=== PATIENT | female | born 1990 | race African-American/Black ===

== ENCOUNTER 2018-08-19 13:30 | Emergency (ER) | payer SELFPAY ==
--- OUTSIDE RECORDS SUMMARY | 2018-08-19 13:32 | XMS REPORT ---
:1990 Author Organization [facility] Address [address] [place] [address] Dr. Szymanski [address] [place] [id number] Care Team Providers Name Role Phone Unavailable Unavailable Unavailable Problems This patient has no known problems. Allergies, Adverse Reactions, Alerts This patient has no known allergies or adverse reactions. Medications This patient has no known medications.
[2018-08-19 14:50] LABS: Absolute Lymphocytes (CBC) 0.7 K/uL (0.7-4.9); Basophils % 0.5 % (0-1.3); Hematocrit 42.1 % (36.0-45.0); Lymphocytes % 7.8 % (15.3-44.8); MPV 10.5 fL (7.6-11.3); Monocytes % 3.1 % (3.3-12.3); RBC Red Blood Cell Count 5.14 M/uL (3.86-4.86)
[2018-08-19] MEDS ORDERED: NA CHLORIDE 0.9% 1,000 ML ONE (14:51)
[2018-08-19] MEDS ORDERED: ONDANSETRON 4 MG/2 ML VIAL ONE (14:51)
[2018-08-19] MEDS ORDERED: KETOROLAC 30 MG/ML INJ ONE (14:52)
[2018-08-19 15:04] LABS: ALT/SGPT 20 U/L (12-78); AST/SGOT 17 U/L (15-37); Albumin 4.1 g/dL (3.4-5.0); Alkaline Phosphatase 86 U/L (45-117); BUN Blood Urea Nitrogen 7 mg/dL (7-18); Bicarbonate 26 mmol/L (21-32); Bilirubin Direct < 0.1 mg/dL (0-0.2); Bilirubin Total 0.3 mg/dL (0.2-1.0); Glucose Level 99 mg/dL (74-106); Lipase 187 U/L (73-393); Potassium 3.7 mmol/L (3.5-5.1); Protein, Total 9.3 g/dL (6.4-8.2); Sodium Level 137 mmol/L (136-145)
[2018-08-19 16:45] LABS: Blood Morphology Comment NOT SEEN (NOT SEEN); Platelet Estimate ADEQ; Urine White Blood Cell Casts OK
--- NOTE | 2018-08-19 16:51 | ER ---
Nurse's Notes [facility] Name: Nasrin Borden Age: 28 yrs Sex: Female : 1990 Arrival Date: 08/19/2018 Time: 13:32 Bed 16 Private MD: Diagnosis: Gastroenteritis, Vomiting, Diarrhea Presentation: 08/19 13:52 Presenting complaint: Patient states: N/V/D x 3-4 episodes since this AM. Care prior to aj arrival: None. 13:52 Method Of Arrival: EMS: [facility] 13:52 Acuity: CRYSTAL 3 14:48 Transition of care: patient was not received from another setting of care. Onset of ls4 symptoms was August 19, 2018 at 08:00. Risk Assessment: Do you want to hurt yourself or someone else? Patient reports no desire to harm self or others. Initial Sepsis Screen: Does the patient meet any 2 criteria? No. Patient's initial sepsis screen is negative. Does the patient have a suspected source of infection? No. Patient's initial sepsis screen is negative. Triage Assessment: 13:53 General: Appears in no apparent distress. comfortable, Behavior is calm, cooperative, aj appropriate for age. Pain: Denies pain. Neuro: Level of Consciousness is awake, alert, obeys commands, Oriented to person, place, time, situation, Appropriate for age. Respiratory: Airway is patent Respiratory effort is even, unlabored, Respiratory pattern is regular, symmetrical. GI: Reports diarrhea, nausea, vomiting. Derm: Skin is intact, is healthy with good turgor, Skin is pink, warm \T\ dry. normal. 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 - Social history:: Smoking status: Patient/guardian denies using tobacco. - Ebola Screening: : Patient negative for fever greater than or equal to 101.5 degrees Fahrenheit, and additional compatible Ebola Virus Disease symptoms Patient denies exposure to infectious person Patient denies travel to an Ebola-affected area in the 21 days before illness onset No symptoms or risks identified at this time. Screenin:47 Abuse screen: Denies threats or abuse. Denies injuries from another. Abuse screen:. ls4 Nutritional screening: No deficits noted. Tuberculosis screening: No symptoms or risk factors identified. Fall Risk None identified. Assessment: 14:02 General: see triage assessment . GI: Abdomen is non-distended, obese, Bowel sounds ls4 present X 4 quads. Abd is soft and non tender X 4 quads. Patient currently denies diarrhea. 15:00 Reassessment: Patient appears in no apparent distress at this time. Patient and/or ls4 family updated on plan of care and expected duration. Pain level reassessed. Patient is alert, oriented x 3, equal unlabored respirations, skin warm/dry/pink. 16:00 Reassessment: Patient appears in no apparent distress at this time. ls4 17:00 Reassessment: Patient appears in no apparent distress at this time. Patient and/or ls4 family updated on plan of care and expected duration. Pain level reassessed. Patient is alert, oriented x 3, equal unlabored respirations, skin warm/dry/pink. Vital Signs: 13:53 BP 145 / 81; Pulse 68; Resp 19; Temp 97.5; Pulse Ox 98% on R/A; Weight 100.7 kg; Height aj 5 ft. 0 in. (152.40 cm); 15:00 BP 128 / 74; Pulse 64; Resp 16; Pulse Ox 99% ; Pain 5/10; ls4 16:00 BP 127 / 78; Pulse 65; Resp 16; Pulse Ox 99% on R/A; Pain 3/10; ls4 17:00 BP 127 / 74; Pulse 65; Resp 16; Temp 97.8(O); Pulse Ox 99% ; Pain 3/10; ls4 13:53 Body Mass Index 43.36 (100.70 kg, 152.40 cm) aj ED Course: 13:32 Patient arrived in ED. as 13:48 Lissa Colin, RN is Primary Nurse. ls4 13:52 Triage completed. aj 13:53 José Mccormack MD is Attending Physician. kdr 13:53 Arm band placed on left wrist. Patient placed in waiting room, Patient notified of wait aj time. 14:29 Initial lab(s) drawn, by me, sent to lab. Inserted saline lock: 20 gauge in left ls4 antecubital area, using aseptic technique. Blood collected. 14:47 Patient has correct armband on for positive identification. Bed in low position. Call ls4 light in reach. Side rails up X 1. Pulse ox on. NIBP on. Warm blanket given. Verbal reassurance given. 14:47 No provider procedures requiring assistance completed. ls4 17:40 IV discontinued, intact, bleeding controlled, No redness/swelling at site. Pressure ls4 dressing applied. Administered Medications: 14:47 Drug: Zofran 4 mg Route: IVP; Site: left antecubital; ls4 14:50 Follow up: Response: No adverse reaction; Marked relief of symptoms ls4 14:50 Drug: NS 0.9% 1000 ml Route: IV; Rate: 1 bolus; Site: left antecubital; ls4 16:00 Follow up: IV Status: Completed infusion; IV Intake: 1000ml ls4 15:05 Drug: TORadol - Ketorolac 15 mg Route: IVP; Site: left antecubital; ls4 15:35 Follow up: Response: No adverse reaction; Marked relief of symptoms ls4 Intake: 16:00 IV: 1000ml; Total: 1000ml. ls4 Outcome: 16:50 Discharge ordered by . kdr 17:40 Discharged to home ambulatory. ls4 17:40 Condition: good 17:40 Discharge instructions given to patient, Instructed on discharge instructions, follow up and referral plans. medication usage, safety practices, Demonstrated understanding of instructions, follow-up care, medications, Prescriptions given X 4. 17:58 Patient left the ED. ls4 Signatures: Camille Puga RN José Lee MD MD kdr Martinez, Amelia as Stewart, Lisa, RN RN ls4
--- NOTE | 2018-08-19 16:51 | EDPHYS ---
Physician Documentation [facility] Name: Nasrin Borden Age: 28 yrs Sex: Female : 1990 Arrival Date: 08/19/2018 Time: 13:32 Bed 16 Private MD: ED Physician José Mccormack HPI: 08/19 14:22 This 28 yrs old Black Female presents to ER via EMS with complaints of kdr Vomiting/Diarrhea. 14:22 The patient presents to the emergency department with nausea, that is mild, vomiting, kdr that is intermittent, diarrhea, that is intermittent, abdominal pain, of the suprapubic area, right lower quadrant and left lower quadrant. Onset: The symptoms/episode began/occurred acutely, just prior to arrival, this morning. Possible causes: unknown, Had dairy last night. The symptoms are aggravated by nothing. The symptoms are alleviated by nothing. Associated signs and symptoms: Pertinent positives:. Severity of symptoms: At their worst the symptoms were mild in the emergency department the symptoms. 16:57 The patient has not experienced similar symptoms in the past. The patient has not kdr recently seen a physician. 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 - Social history:: Smoking status: Patient/guardian denies using tobacco. - Ebola Screening: : Patient negative for fever greater than or equal to 101.5 degrees Fahrenheit, and additional compatible Ebola Virus Disease symptoms Patient denies exposure to infectious person Patient denies travel to an Ebola-affected area in the 21 days before illness onset No symptoms or risks identified at this time. ROS: 16:57 Constitutional: Negative for fever, chills, and weight loss, Eyes: Negative for injury, kdr pain, redness, and discharge, Neck: Negative for injury, pain, and swelling, Cardiovascular: Negative for chest pain, palpitations, and edema, Respiratory: Negative for shortness of breath, cough, wheezing, and pleuritic chest pain, Back: Negative for injury and pain, : Negative for injury, bleeding, discharge, and swelling, MS/Extremity: Negative for injury and deformity, Skin: Negative for injury, rash, and discoloration, Neuro: Negative for headache, weakness, numbness, tingling, and seizure activity. Psych: Negative for depression, anxiety, suicide ideation, homicidal ideation, and hallucinations, Allergy/Immunology: Negative for hives, rash, and allergies, Endocrine: Negative for neck swelling, polydipsia, polyuria, polyphagia, and marked weight changes, Hematologic/Lymphatic: Negative for swollen nodes, abnormal bleeding, and unusual bruising. 16:57 Abdomen/GI: Positive for abdominal pain, nausea, vomiting, and diarrhea, Negative for abdominal cramps, abdominal distension, anorexia, dysphagia, hematemesis, black/tarry stool, rectal pain, rectal bleeding. Exam: 16:57 Constitutional: This is a well developed, well nourished patient who is awake, alert, kdr and in no acute distress. Head/Face: Normocephalic, atraumatic. Eyes: Pupils equal round and reactive to light, extra-ocular motions intact. Lids and lashes normal. Conjunctiva and sclera are non-icteric and not injected. Cornea within normal limits. Periorbital areas with no swelling, redness, or edema. Neck: Trachea midline, no thyromegaly or masses palpated, and no cervical lymphadenopathy. Supple, full range of motion without nuchal rigidity, or vertebral point tenderness. No Meningismus. Chest/axilla: Normal chest wall appearance and motion. Nontender with no deformity. No lesions are appreciated. Cardiovascular: Regular rate and rhythm with a normal S1 and S2. No gallops, murmurs, or rubs. Normal PMI, no JVD. No pulse deficits. Respiratory: Lungs have equal breath sounds bilaterally, clear to auscultation and percussion. No rales, rhonchi or wheezes noted. No increased work of breathing, no retractions or nasal flaring. Abdomen/GI: Soft, mild tender, with normal bowel sounds. No distension or tympany. No guarding or rebound. No evidence of tenderness throughout. Back: No spinal tenderness. No costovertebral tenderness. Full range of motion. Skin: Warm, dry with normal turgor. Normal color with no rashes, no lesions, and no evidence of cellulitis. MS/ Extremity: Pulses equal, no cyanosis. Neurovascular intact. Full, normal range of motion. Neuro: Awake and alert, GCS 15, oriented to person, place, time, and situation. Cranial nerves II-XII grossly intact. Motor strength 5/5 in all extremities. Sensory grossly intact. Cerebellar exam normal. Normal gait. Psych: Awake, alert, with orientation to person, place and time. Behavior, mood, and affect are within normal limits. Vital Signs: 13:53 BP 145 / 81; Pulse 68; Resp 19; Temp 97.5; Pulse Ox 98% on R/A; Weight 100.7 kg; Height aj 5 ft. 0 in. (152.40 cm); 15:00 BP 128 / 74; Pulse 64; Resp 16; Pulse Ox 99% ; Pain 5/10; ls4 16:00 BP 127 / 78; Pulse 65; Resp 16; Pulse Ox 99% on R/A; Pain 3/10; ls4 17:00 BP 127 / 74; Pulse 65; Resp 16; Temp 97.8(O); Pulse Ox 99% ; Pain 3/10; ls4 13:53 Body Mass Index 43.36 (100.70 kg, 152.40 cm) aj MDM: 16:50 Patient medically screened. kdr 16:57 Data reviewed: vital signs, nurses notes, lab test result(s). Counseling: I had a kdr detailed discussion with the patient and/or guardian regarding: the historical points, exam findings, and any diagnostic results supporting the discharge/admit diagnosis, lab results, the need for outpatient follow up. 08/19 14:10 Order name: Basic Metabolic Panel; Complete Time: 15:52 [facility] 08/19 14:10 Order name: CBC with Diff [facility] 08/19 14:10 Order name: Creatinine for Radiology; Complete Time: 15:52 kdr 08/19 14:10 Order name: Hepatic Function; Complete Time: 15:52 kdr 08/19 14:10 Order name: Lipase; Complete Time: 15:52 kdr 08/19 15:19 Order name: CBC Smear Scan EDMS 08/19 14:10 Order name: IV Saline Lock; Complete Time: 14:30 kdr 08/19 14:10 Order name: Labs collected and sent; Complete Time: 14:30 kdr Administered Medications: 14:47 Drug: Zofran 4 mg Route: IVP; Site: left antecubital; ls4 14:50 Follow up: Response: No adverse reaction; Marked relief of symptoms ls4 14:50 Drug: NS 0.9% 1000 ml Route: IV; Rate: 1 bolus; Site: left antecubital; ls4 16:00 Follow up: IV Status: Completed infusion; IV Intake: 1000ml ls4 15:05 Drug: TORadol - Ketorolac 15 mg Route: IVP; Site: left antecubital; ls4 15:35 Follow up: Response: No adverse reaction; Marked relief of symptoms ls4 Disposition: 08/19/18 16:50 Discharged to Home. Impression: Gastroenteritis, Vomiting, Diarrhea. - Condition is Stable. - Discharge Instructions: Viral Gastroenteritis, Adult, [id number], Nausea and Vomiting, Adult, [id number]-[id number], Diarrhea, Adult, [id number]. - Prescriptions for Lomotil 2.5- 0.025 mg Oral Tablet - take 2 tablet by ORAL route once daily As needed; 20 tablet. Pepcid 20 mg Oral Tablet - take 1 tablet by ORAL route once daily As needed; 10 tablet. promethazine 25 mg Oral Tablet - take 1 tablet by ORAL route every 6 hours As needed; 20 tablet. Tramadol 50 mg Oral Tablet - take 1 tablet by ORAL route every 8 hours as needed; 12 tablet. - Medication Reconciliation Form, Thank You Letter form. - Follow up: Private Physician; When: 2 - 3 days; Reason: If symptoms return, Further diagnostic work-up, Recheck today's complaints, Continuance of care, Re-evaluation by your physician. - Problem is new. - Symptoms have improved. Signatures: Dispatcher [employer] EDOK Camille Puga RN RN José Lawson MD MD kdr Stewart, Lisa, RN RN ls4 Corrections: (The following items were deleted from the chart) 17:58 16:50 08/19/2018 16:50 Discharged to Home. Impression: Gastroenteritis, Vomiting, ls4 Diarrhea. Condition is Stable. Forms are Medication Reconciliation Form, Thank You Letter, Antibiotic Education, Prescription Opioid Use. Follow up: Private Physician; When: 2 - 3 days; Reason: If symptoms return, Further diagnostic work-up, Recheck today's complaints, Continuance of care, Re-evaluation by your physician. Problem is new. Symptoms have improved. kdr
[2018-08-19 19:59] VITALS: O2SAT 99
[2018-08-19 20:02] VITALS: BP 127/74; TEMP 97.8
== END 2018-08-19 17:58 | disposition home or self-care (01) ==
LOC: ER 13:30
DX: K52.9 Noninfective gastroenteritis and colitis, unspecified (principal); Z88.1 Allergy status to other antibiotic agents
CPT/HCPCS: 36415; 80048; 80076; 83690; 85025; 96361; 96374; 96375; 99284; J2405; J7030

== ENCOUNTER 2020-01-01 16:32 | Emergency (ER) | payer OTHER, SELFPAY ==
--- OUTSIDE RECORDS SUMMARY | 2020-01-01 16:34 | XMS REPORT | Continuity of Care Document ---
:1990 Author Organization [facility] Address [address] [place] [address] Care Team Providers Name Role Phone Suzanne Fernandez Attending Clinician Problems This patient has no known problems. Allergies, Adverse Reactions, Alerts This patient has no known allergies or adverse reactions. Medications This patient has no known medications. Procedures This patient has no known procedures. 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 [id number] MATERNAL [id number] & CHILD [address] [place] [address] Results This patient has no known results.
[2020-01-01] MEDS ORDERED: CYCLOBENZAPRINE 10 MG TAB ONE (18:11)
[2020-01-01] MEDS ORDERED: KETOROLAC 30 MG/ML INJ ONE (18:12)
[2020-01-01] MEDS ORDERED: HYDROCODONE/APAP 10/325 TAB ONE (18:12)
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
[2020-01-01 18:56] VITALS: BP 144/88; TEMP 98.8; O2SAT 100
== END 2020-01-01 18:36 | disposition home or self-care (01) ==
LOC: ER 16:32
DX: S29.012A Strain of muscle and tendon of back wall of thorax, initial encounter (principal); S29.011A Strain of muscle and tendon of front wall of thorax, initial encounter; V49.40XA Driver injured in collision with unspecified motor vehicles in traffic accident, initial encounter; Z88.1 Allergy status to other antibiotic agents
CPT/HCPCS: 96372; 99283

== ENCOUNTER 2020-05-09 22:45 | Emergency (ER) | payer SELFPAY ==
--- OUTSIDE RECORDS SUMMARY | 2020-05-09 22:48 | XMS REPORT | Continuity of Care Document ---
:[address] [facility] t Address 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
[2020-05-10] MEDS ORDERED: MORPHINE 4 MG/ML SYR ONE ×2 (00:41→02:35)
[2020-05-10] MEDS ORDERED: ONDANSETRON 4 MG/2 ML VIAL ONE (00:41)
[2020-05-10] MEDS ORDERED: NA CHLORIDE 0.9% 1,000 ML ONE (00:42)
[2020-05-10] MEDS ORDERED: FAMOTIDINE 20 MG/2 ML VIAL IV ONE (00:42)
[2020-05-10 01:25] LABS: Absolute Lymphocytes (CBC) 1.2 K/uL (0.7-4.9); Basophils % 0.9 % (0-1.3); Hematocrit 37.3 % (36.0-45.0); Lymphocytes % 14.2 % (15.3-44.8); MPV 9.9 fL (7.6-11.3); RBC Red Blood Cell Count 4.49 M/uL (3.86-4.86)
[2020-05-10 01:34] LABS: ALT/SGPT 19 U/L (12-78); AST/SGOT 18 U/L (15-37); Albumin 3.7 g/dL (3.4-5.0); Alkaline Phosphatase 72 U/L (45-117); BUN Blood Urea Nitrogen 9 mg/dL (7-18); Bicarbonate 26 mmol/L (21-32); Bilirubin Direct < 0.1 mg/dL (0-0.2); Bilirubin Total 0.2 mg/dL (0.2-1.0); Glucose Level 115 mg/dL (74-106); Lipase 154 U/L (73-393); Potassium 3.9 mmol/L (3.5-5.1); Protein, Total 8.5 g/dL (6.4-8.2); Sodium Level 138 mmol/L (136-145)
[2020-05-10] MEDS ORDERED: METOCLOPRAMIDE 10 MG/2mL INJ ONE (02:34)
[2020-05-10 03:12] LABS: Urine Blood NEGATIVE (NEG); Urine Glucose NEGATIVE (NEG); Urine Protein 1+ (NEG); Urine Specific Gravity 1.025 (1.005-1.030); Urine pH 7.5 (5.0-7.0)
--- NOTE | 2020-05-10 03:49 | EDPHYS ---
Physician Documentation [facility] Name: Nasrin Borden Age: 30 yrs Sex: Female : 1990 Arrival Date: 05/09/2020 Time: 22:47 Bed 17 Private MD: ED Physician Devang Bess HPI: 05/10 00:28 This 30 yrs old Black Female presents to ER via Ambulatory with complaints of Abdominal mh7 Cramping, Nausea/Vomiting. 00:28 The patient presents with abdominal pain in the upper abdomen. Onset: The mh7 symptoms/episode began/occurred last night, at 17:00. The symptoms do not radiate. Associated signs and symptoms: Pertinent positives: nausea and vomiting, Pertinent negatives: anorexia, blood in stools, chest pain, constipation, diarrhea, dysuria, fever, headache, hematuria, palpitations, shortness of breath, vaginal discharge, vomiting blood. The symptoms are described as intermittent, vague, waxing/waning. Modifying factors: The symptoms are alleviated by nothing, the symptoms are aggravated by nothing. Severity of pain: At its worst the pain was moderate last night, in the emergency department the pain is unchanged despite home interventions. States that she ate food from a restaurant \T\ 1300 yesterday then started having symptoms \T\ 1700.. 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 - Social history:: Smoking status: Patient denies any tobacco usage or history of. ROS: 05/10 00:28 Constitutional: Negative for fever, chills, and weight loss, Eyes: Negative for injury, mh7 pain, redness, and discharge, ENT: Negative for injury, pain, and discharge, Neck: Negative for injury, pain, and swelling, Cardiovascular: Negative for chest pain, palpitations, and edema, Respiratory: Negative for shortness of breath, cough, wheezing, and pleuritic chest pain, Back: Negative for injury and pain, : Negative for injury, bleeding, discharge, and swelling, MS/Extremity: Negative for injury and deformity, Skin: Negative for injury, rash, and discoloration, Neuro: Negative for headache, weakness, numbness, tingling, and seizure, Psych: Negative for depression, anxiety, suicide ideation, homicidal ideation, and hallucinations, Allergy/Immunology: Negative for hives, rash, and allergies, Endocrine: Negative for neck swelling, polydipsia, polyuria, polyphagia, and marked weight changes, Hematologic/Lymphatic: Negative for swollen nodes, abnormal bleeding, and unusual bruising. Exam: 00:28 Head/Face: Normocephalic, atraumatic. Eyes: Pupils equal round and reactive to light, mh7 extra-ocular motions intact. Lids and lashes normal. Conjunctiva and sclera are non-icteric and not injected. Cornea within normal limits. Periorbital areas with no swelling, redness, or edema. Neck: Trachea midline, no thyromegaly or masses palpated, and no cervical lymphadenopathy. Supple, full range of motion without nuchal rigidity, or vertebral point tenderness. No Meningismus. Chest/axilla: Normal chest wall appearance and motion. Nontender with no deformity. No lesions are appreciated. Cardiovascular: Regular rate and rhythm with a normal S1 and S2. No gallops, murmurs, or rubs. Normal PMI, no JVD. No pulse deficits. Respiratory: Lungs have equal breath sounds bilaterally, clear to auscultation and percussion. No rales, rhonchi or wheezes noted. No increased work of breathing, no retractions or nasal flaring. 00:28 Back: No spinal tenderness. No costovertebral tenderness. Full range of motion. Skin: Warm, dry with normal turgor. Normal color with no rashes, no lesions, and no evidence of cellulitis. MS/ Extremity: Pulses equal, no cyanosis. Neurovascular intact. Full, normal range of motion. Neuro: Awake and alert, GCS 15, oriented to person, place, time, and situation. Cranial nerves II-XII grossly intact. Motor strength 5/5 in all extremities. Sensory grossly intact. Cerebellar exam normal. Normal gait. Psych: Awake, alert, with orientation to person, place and time. Behavior, mood, and affect are within normal limits. 00:28 Constitutional: The patient appears in no acute distress, alert, awake, uncomfortable. 00:28 Abdomen/GI: Inspection: obese Bowel sounds: normal, in all quadrants, Palpation: moderate abdominal tenderness, in the epigastric area, right upper quadrant and left upper quadrant, Rectal exam: the exam is deferred, because of patient request, Indicators: McBurney's point is not tender, Mcfadden's sign is negative, Rovsing's sign is negative, Obturator sign is negative, Psoas sign is negative, Liver: no appreciated palpable abnormalities, Hernia: not appreciated. Vital Signs: 05/09 23:10 BP 161 / 99; Pulse 100; Resp 20 S; Temp 99.3(O); Pulse Ox 98% on R/A; Weight 99.34 kg bb (R); Height 5 ft. 0 in. (152.40 cm) (R); Pain 10/10; 03 00:00 BP 158 / 99; Pulse 92; Resp 18; Pulse Ox 98% on R/A; wh 02:00 BP 167 / 100; Pulse 95; Resp 18; Pulse Ox 98% on R/A; wh 04:00 BP 146 / 90; Pulse 66; Resp 18; Pulse Ox 97% on R/A; wh 05/09 23:10 Body Mass Index 42.77 (99.34 kg, 152.40 cm) bb MDM: 03:46 Differential diagnosis: bowel obstruction, cholecystitis, Cholelithiasis, mh7 diverticulitis, gastritis, gastroesophageal reflux disease, non-specific abd pain, pancreatitis, Pyelonephritis, Ureterolithiasis, urinary tract infection. Data reviewed: vital signs, nurses notes, lab test result(s), CBC, electrolytes, urinalysis, EKG, radiologic studies, CT scan. Data interpreted: Pulse oximetry: on room air is 98 %. Interpretation: normal. Counseling: I had a detailed discussion with the patient and/or guardian regarding: the historical points, exam findings, and any diagnostic results supporting the discharge/admit diagnosis, lab results, radiology results, the need for outpatient follow up, to return to the emergency department if symptoms worsen or persist or if there are any questions or concerns that arise at home. Response to treatment: the patient's symptoms have resolved after treatment, the patient's blood pressure is in an acceptable range, mental status has returned to baseline, the patient no longer shows bradycardia, the patient is not short of breath, the patient is not tachycardic, the patient's pain is gone, the patient's temperature has normalized. 03:48 Patient medically screened. [facility] 05/10 00:05 Order name: Basic Metabolic Panel; Complete Time: 02:13 [facility] 05/10 00:05 Order name: CBC with Diff; Complete Time: 02:13 [facility] 05/10 00:05 Order name: Hepatic Function; Complete Time: 02:13 [facility] 05/10 00:05 Order name: Lipase; Complete Time: 02:13 [facility] 05/10 01:50 Order name: Urine Dipstick--Ancillary (enter results); Complete Time: 03:43 [facility] 05/10 01:50 Order name: Urine --Ancillary (enter results); Complete Time: 03:43 [facility] 05/10 00:05 Order name: IV Saline Lock; Complete Time: 00:31 [facility] 05/10 02:15 Order name: CT Abd/Pelvis - IV Contrast Only [facility] 05/10 00:05 Order name: Labs collected and sent; Complete Time: 00: [facility] 05/10 00:05 Order name: Urine Dipstick-Ancillary (obtain specimen); Complete Time: :46 [facility] 05/10 00:05 Order name: Urine Test (obtain specimen); Complete Time: : [facility] 05/10 02:15 Order name: EKG - Nurse/Tech; Complete Time: 02:28 [facility] Administered Medications: 00:24 Drug: NS 0.9% 1000 ml Route: IV; Rate: 1000 ml; Site: right antecubital; 01:45 Follow up: Response: No adverse reaction; IV Status: Completed infusion 00:26 Drug: morphine 4 mg {Note: RASS 0.} Route: IVP; Site: right antecubital; 01:45 Follow up: Response: No adverse reaction; Pain is decreased; RASS: Alert and Calm (0) 00:28 Drug: Zofran (Ondansetron) 4 mg Route: IVP; Site: right antecubital; 01:45 Follow up: Response: No adverse reaction; Nausea is decreased 00:30 Drug: Pepcid 20 mg Route: IVP; Site: right antecubital; 01:45 Follow up: Response: No adverse reaction 02:26 Drug: morphine 4 mg {Note: RASS 0.} Route: IVP; Site: right antecubital; 04:15 Follow up: Response: No adverse reaction; Nausea is decreased 02:28 Drug: Reglan 10 mg Route: IVP; Site: right antecubital; 04:15 Follow up: Response: No adverse reaction; Pain is decreased; RASS: Alert and Calm (0) Disposition: 05/10/20 03:48 Discharged to Home. Impression: Upper abdominal pain, unspecified, Vomiting. - Condition is Stable. - Discharge Instructions: Nausea and Vomiting, Adult, Rejs-eg-Tfwy, Abdominal Pain, Adult, Mcbj-cj-Veqk, Clear Liquid Diet, Mnkk-nr-Fwhi. - Prescriptions for Zofran ODT 4 mg Oral tablet,disintegrating - place 1 tablet by TRANSLINGUAL route every 8 hours As needed; 6 tablet. Bentyl 20 mg Oral Tablet - take 1 tablet by ORAL route every 6 hours As needed; 20 tablet. Pepcid 20 mg Oral Tablet - take 1 tablet by ORAL route every 12 hours for 5 days; 10 tablet. - Medication Reconciliation Form, Thank You Letter, Antibiotic Education, Prescription Opioid Use form. - Follow up: Private Physician; When: 1 - 2 days; Reason: Worsening of condition, Recheck today's complaints, Continuance of care, Re-evaluation by your physician. - Problem is new. - Symptoms have improved. Signatures: Dispatcher [employer] EDMS Romina Metcalf RN RN Lamont Leija RN RN Devang Bess MD MD mh7 Corrections: (The following items were deleted from the chart) 04:15 03:48 05/10/2020 03:48 Discharged to Home. Impression: Upper abdominal pain, wh unspecified; Vomiting. Condition is Stable. Forms are Medication Reconciliation Form, Thank You Letter, Antibiotic Education, Prescription Opioid Use. Follow up: Private Physician; When: 1 - 2 days; Reason: Worsening of condition, Recheck today's complaints, Continuance of care, Re-evaluation by your physician. Problem is new. Symptoms have improved. mh7
--- NOTE | 2020-05-10 03:49 | ER ---
Nurse's Notes [facility] Name: Nasrin Borden Age: 30 yrs Sex: Female : 1990 Arrival Date: 05/09/2020 Time: 22:47 Bed 17 Private MD: Diagnosis: Upper abdominal pain, unspecified;Vomiting Presentation: 05/09 23:10 Chief complaint: Patient states: a couple of hours after eating at [employer] she bb started having abdominal pain, nausea, and vomiting, denies diarrhea. Coronavirus screen: At this time, the client does not indicate any symptoms associated with coronavirus-19. Ebola Screen: No symptoms or risks identified at this time. Initial Sepsis Screen: Does the patient meet any 2 criteria? No. Patient's initial sepsis screen is negative. Does the patient have a suspected source of infection? No. Patient's initial sepsis screen is negative. Risk Assessment: Do you want to hurt yourself or someone else? Patient reports no desire to harm self or others. Onset of symptoms was May 09, 2020. 23:10 Method Of Arrival: Ambulatory bb 23:10 Acuity: CRYSTAL 3 bb Triage Assessment: 23:13 General: Appears uncomfortable, Behavior is cooperative, anxious. Pain: Complains of bb pain in abdomen Pain currently is 10 out of 10 on a pain scale. Neuro: Level of Consciousness is awake, alert, obeys commands, Oriented to person, place, time, situation. Cardiovascular: No deficits noted. Respiratory: Respiratory effort is even, unlabored, Respiratory pattern is regular. GI: Abdomen is non-distended, Reports lower abdominal pain, upper abdominal pain, nausea, vomiting. Derm: Skin is dry, Skin is normal, Skin temperature is warm. Musculoskeletal: Circulation, motion, and sensation intact. 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 - Social history:: Smoking status: Patient denies any tobacco usage or history of. Screenin/10 00:30 Abuse screen: Denies threats or abuse. Denies injuries from another. Nutritional screening: No deficits noted. Tuberculosis screening: No symptoms or risk factors identified. Fall Risk None identified. Assessment: 00:15 General: Appears in no apparent distress. uncomfortable, Behavior is calm, cooperative, wh appropriate for age. Pain: Complains of pain in left upper quadrant and right upper quadrant and epigastric area Quality of pain is described as crampy, Pain began 4 hours ago. Is intermittent. Neuro: Level of Consciousness is awake, alert, obeys commands, Oriented to person, place, time, situation, Appropriate for age. Cardiovascular: Heart tones S1 S2. Respiratory: Airway is patent Respiratory effort is even, unlabored, Respiratory pattern is regular, symmetrical. Respiratory: Breath sounds are clear bilaterally. GI: Abdomen is flat, non-distended, Bowel sounds present X 4 quads. Abd is soft and non tender X 4 quads. Reports lower abdominal pain, upper abdominal pain, cramping, nausea, Patient currently denies diarrhea, vomiting. : No signs and/or symptoms were reported regarding the genitourinary system. EENT: No signs and/or symptoms were reported regarding the EENT system. Derm: Skin is intact, is healthy with good turgor, Skin is pink, warm \T\ dry. normal. Musculoskeletal: Circulation, motion, and sensation intact. 01:57 Reassessment: Patient appears in no apparent distress at this time. No changes from previously documented assessment. Patient and/or family updated on plan of care and expected duration. Pain level reassessed. Patient is alert, oriented x 3, equal unlabored respirations, skin warm/dry/pink. 04:00 Reassessment: Patient appears in no apparent distress at this time. Patient and/or family updated on plan of care and expected duration. Pain level reassessed. Patient is alert, oriented x 3, equal unlabored respirations, skin warm/dry/pink. Patient states feeling better. Patient states symptoms have improved. Vital Signs: 05/09 23:10 BP 161 / 99; Pulse 100; Resp 20 S; Temp 99.3(O); Pulse Ox 98% on R/A; Weight 99.34 kg bb (R); Height 5 ft. 0 in. (152.40 cm) (R); Pain 12/10; 05/10 00:00 BP 158 / 99; Pulse 92; Resp 18; Pulse Ox 98% on R/A; wh 02:00 BP 167 / 100; Pulse 95; Resp 18; Pulse Ox 98% on R/A; wh 04:00 BP 146 / 90; Pulse 66; Resp 18; Pulse Ox 97% on R/A; wh 05/09 23:10 Body Mass Index 42.77 (99.34 kg, 152.40 cm) ED Course: 05/09 22:47 Patient arrived in ED. cl3 23:12 Triage completed. bb 23:13 Arm band placed on. bb 23:53 Devang Bess MD is Attending Physician. 7 05/10 00:05 Lamont Leija, RN is Primary Nurse. 00:30 Patient has correct armband on for positive identification. Placed in gown. Bed in low wh position. Call light in reach. Side rails up X 1. Pulse ox on. NIBP on. 00:30 Inserted saline lock: 20 gauge in right antecubital area, using aseptic technique. wh Blood collected. 02:56 CT Abd/Pelvis - IV Contrast Only In Process Unspecified. EDMS 04:13 No provider procedures requiring assistance completed. IV discontinued, intact, wh bleeding controlled, No redness/swelling at site. Administered Medications: 00:24 Drug: NS 0.9% 1000 ml Route: IV; Rate: 1000 ml; Site: right antecubital; 01:45 Follow up: Response: No adverse reaction; IV Status: Completed infusion 00:26 Drug: morphine 4 mg {Note: RASS 0.} Route: IVP; Site: right antecubital; 01:45 Follow up: Response: No adverse reaction; Pain is decreased; RASS: Alert and Calm (0) 00:28 Drug: Zofran (Ondansetron) 4 mg Route: IVP; Site: right antecubital; 01:45 Follow up: Response: No adverse reaction; Nausea is decreased 00:30 Drug: Pepcid 20 mg Route: IVP; Site: right antecubital; 01:45 Follow up: Response: No adverse reaction 02:26 Drug: morphine 4 mg {Note: RASS 0.} Route: IVP; Site: right antecubital; 04:15 Follow up: Response: No adverse reaction; Nausea is decreased 02:28 Drug: Reglan 10 mg Route: IVP; Site: right antecubital; 04:15 Follow up: Response: No adverse reaction; Pain is decreased; RASS: Alert and Calm (0) Outcome: 03:48 Discharge ordered by . etelvina 04:14 Discharged to home ambulatory. 04:14 Condition: stable 04:14 Discharge instructions given to patient, Instructed on discharge instructions, follow up and referral plans. POC Demonstrated understanding of instructions, follow-up care, POC Prescriptions given X 3. 04:15 Patient left the ED. Signatures: Dispatcher [employer] EDRomina Lemons RN RN bb Habalo, Winsy, RN RN wh Lewis, Charde cl3 Devang Bess MD MD mh7
--- NOTE | 2020-05-10 10:18 | RAD REPORT ---
EXAM DESCRIPTION: CT Abdomen and Pelvis With Intravenous Contrast CLINICAL HISTORY: The patient is 30 years old and is Female; Abd pain;Nausea / vomiting TECHNIQUE: Axial computed tomography images of the abdomen and pelvis with intravenous contrast. S agittal and coronal reformatted images were created and reviewed. This CT exam was performed using one or more of the following dose reduction techniques: automated exposure control, adjustment of t he mA and/or kV according to patient size, and/or use of iterative reconstruction technique. COMPARISON: No relevant prior studies available. FINDINGS: Lung bases: Unremarkable. No mass. No consolidation. ABDOMEN: Liver: Unremarkable. No mass. Gallbladder and bile ducts: Unremarkable. No calcified stones. No ductal dilation. Pancreas: Unremarkable. No mass. No ductal dilation. Spleen: Unremarkable. No splenomegaly. Adrenals: Unremarkable. No mass. Kidneys and ureters: Unremarkable. No solid mass. No hydronephrosis. Stomach and bowel: Unremarkable. No obstruction. No mucosal thickening. PELVIS: Appendix: No findings to suggest acute appendicitis. Bladder: Unremarkable. No mass. Reproductive: Unremarkable as visualized. ABDOMEN and PELVIS: Intraperitoneal space: Unremarkable. No free air. No significant fluid collection. Bones/joints: No acute fracture. No dislocation. Soft tissues: Unremarkable. Vasculature: Unremarkable. No abdominal aortic aneurysm. Lymph nodes: Unremarkable. No enlarged lymph nodes. IMPRESSION: No acute finding in the abdomen/pelvis. Electronically signed by: Pete Beck MD 05/10/2020 3:09 AM FUNERAL PRE ARRANGEMENT SPECIALIST Due to temporary technical issues with the PACS/Fluency reporting system, reports are being signed by the in house radiologist without review as a courtesy to ensure prompt reporting. The interpreting r adiologist is fully responsible for the content of the report.
[2020-05-10 17:16] VITALS: TEMP 99.3
[2020-05-10 17:19] VITALS: BP 146/90; O2SAT 97
== END 2020-05-10 04:15 | disposition home or self-care (01) ==
LOC: ER 22:45
DX: R11.2 Nausea with vomiting, unspecified (principal); Z88.1 Allergy status to other antibiotic agents
CPT/HCPCS: 36415; 74177; 80048; 80076; 81003; 81025; 83690; 85025; 93005; 96361; 96374; 96375; 99284; J2405; J2765; J7030; Q9967

== ENCOUNTER 2021-08-11 01:52 | Emergency (ER) | payer SELFPAY ==
--- OUTSIDE RECORDS SUMMARY | 2021-08-11 01:55 | XMS REPORT | Continuity of Care Document ---
:1990 Author Organization [facility] t Address [address] [place] [address] Care Team Providers Name Role Phone AGGIE BUNN Primary Care Physician Unavailable Maegan BUNN Attending Clinician Unavailable Oni WHCNP C Attending Clinician Epi YING, R Attending Clinician Payers Payer Name Policy Type Policy Number Effective Date Expiration Date Josue carroll HT-RMP [id number] 2018 00:00:00 Problems Condition Condition Condition Status Onset Resolution Last Treating Co mments Source Name Details Category Date Date Treatment Clinician Date Other Other Disease Active [facility] general general 1-19 [place] advice 00 [place] dical for for Branch contracept contracept moo moo management management Trichomona Trichomona Disease Active U nivers l l 4-01 it[place] of vulvovagin [place] it[place] Medical [facility] BMI BMI Disease Active 2019- Univers 40.0-44.9, 40.0-44.9, 3-21 it y of adult adult 00:00: [place] 00 Medical Branch Elevated Elevated Disease Active Unive rs blood blood 3-21 ity of pressure pressure 00:00: [place] reading reading 00 Medical without without Branch diagnosis diagnosis of of hypertensi hypertensi on on Positive Positive Disease Active Unive rs depression depression 3-21 [place] [facility] [place] Family Disease Active [facility] planning planning 3-21 [place] [facility] Family Family Disease Active Univers history of history of 3-21 it y of diabetes diabetes 00:00: [place] mellitus mellitus 00 Medica l Branch Morbid Morbid Disease Active Univers obesity obesity 10-28 ity of 00:00: [place] [facility] Allergies, Adverse Reactions, Alerts Allergy Allergy Status Severity Reaction(s) Onset Inactive Treating Comm ents Source Name Type Date Date Clinician AZITHROM DRUG Active Hallucinates Un edwige YCIN INGREDI 10-12 ity of 00:00: [place] [facility] Azithrom Propensi Active Hallucinatio Univers ycin ty to ns 10-12 ity of adverse 00:00: [place] reaction 00 [facility] [place] Social History Social Habit Start Date Stop Date Quantity Comments Source Exposure to Not sure [facility] SARS-CoV-2 (event) [facility] Alcohol intake 2021-03-21 2021-03-21 0 /d [facility] 00:00:00 00:00:00 [facility] Tobacco use and 2019-07-05 2019-07-05 Never used [facility] exposure 00:00:00 00:00:00 [facility] Sex Ass[birth year] [facility] 00:00:00 00:00:00 [facility] Smoking Status Start Date Stop Date Source Former smoker 2019-07-05 00:00:00 2019-07-05 00:00:00 [facility] Medications Ordered Filled Start Stop Current Ordering Indication Dosage Frequency Signature Comments Components Source Medication Medication Date Date Medication? Clinician (SIG) Name Name No known No Univers medications 03-21 ity of 09:08: [place] [facility] Immunizations Ordered Filled Immunization Date Status Comments Sour e Immunization Name Name TDAP (ADACEL) 2012-10-28 Completed [facility] VACCINE 00:00:00 [facility] Vital Signs Vital Name Observation Time Observation Value Comments Source Diastolic blood 2021-03-21 15:03:00 90 mm[Hg] Unive rsity of pressure [facility] Systolic blood 2021-03-21 15:03:00 140 mm[Hg] Univer sity of pressure [facility] Heart rate 2021-03-21 14:47:00 62 /min [facility] Body temperature 2021-03-21 14:47:00 35.89 [facility] Respiratory rate 2021-03-21 14:47:00 16 /min [facility] Body height 2021-03-21 14:47:00 152.4 cm [facility] Body weight 2021-03-21 14:47:00 101.407 kg [facility] BMI 2021-03-21 14:47:00 43.66 kg/m2 [facility] Procedures Procedure Date / Time Performed Performing Clinician [facility] POCT TEST 2021-03-21 15:21:00 Aggie Bunn [facility] Encounters Start End Encounter Admission Attending Care Care Encounter Source Date/Time Date/Time Type Type Clinicians Facility Department ID 2021-03-21 2021-03-21 Outpatient R ONI [facility] [id number] [facility] 09:00:00 09:25:56 AGGIE russo o f [facility] 2021-03-21 2021-03-21 [facility] [id number] [facility] 09:00:00 09:25:56 Visit Aggie Issa [employer] [id number] Eran as MATERNAL [id number] Med ical & CHILD [address] [place] [address] 2019-07-05 2019-07-[address] [facility] [id number] 21 10:19:00 10:54:18 Visit Suzanne Reagan [employer] [id number] [facility] [id number] MATERNAL [id number] & CHILD [address] [place] [address] Results Test Description Test Time Test Comments Results Result Comments Source POCT TEST 2021-03-21 15:21:00 Test Item Value Reference Range Interpretation Comme nts POCT PREG (test code = 1605) Negative On board controls acceptable with C Line (test code = 3574) Yes POCT PREG LOT # (test code = 3575) POCT PREG TEST DATE (test code = 3576) [facility]
[2021-08-11] MEDS ORDERED: NA CHLORIDE 0.9% 1,000 ML ONE (03:23)
[2021-08-11] MEDS ORDERED: ONDANSETRON 4 MG/2 ML VIAL ONE (03:23)
[2021-08-11] MEDS ORDERED: MORPHINE 4 MG/ML SYR ONE (03:23)
[2021-08-11 03:47] LABS: Urine Blood Negative (Negative); Urine Glucose Negative (Negative); Urine Protein Negative (Negative)
[2021-08-11 03:51] LABS: Absolute Lymphocytes (CBC) 1.3 K/uL (0.7-4.9); Hematocrit 36.6 % (36.0-45.0); Lymphocytes % 19.6 % (15.3-44.8); RBC Red Blood Cell Count 4.44 M/uL (3.86-4.86)
[2021-08-11 04:13] LABS: Albumin 3.4 g/dL (3.4-5.0); Bilirubin Total 0.2 mg/dL (0.2-1.0); Potassium 3.6 mmol/L (3.5-5.1); Protein, Total 7.9 g/dL (6.4-8.2); Troponin High Sensitivity 58.5 pg/mL (<58.9)
--- NOTE | 2021-08-11 06:54 | EDPHYS ---
Physician Documentation [facility] Name: Nasrin Borden Age: 31 yrs Sex: Female : 1990 Arrival Date: 08/11/2021 Time: 02:12 Bed 18 Private MD: ED Physician Devang Bess HPI: 08/11 02:20 This 31 yrs old Black Female presents to ER via EMS with complaints of Abdominal Pain. mh7 02:20 The patient presents with abdominal pain in the epigastric area. Onset: The mh7 symptoms/episode began/occurred yesterday. The symptoms do not radiate. Associated signs and symptoms: Pertinent positives: nausea, Pertinent negatives: anorexia, blood in stools, chest pain, constipation, diarrhea, dysuria, fever, headache, hematuria, palpitations, shortness of breath, vaginal discharge, vomiting, vomiting blood. The symptoms are described as intermittent, vague, waxing/waning. Modifying factors: The symptoms are alleviated by nothing, the symptoms are aggravated by nothing. Severity of pain: At its worst the pain was moderate yesterday, in the emergency department the pain has improved moderately. 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 Flu vaccine is not up to date. - Social history:: Smoking status: Patient denies any tobacco usage or history of. ROS: 02:20 Constitutional: Negative for fever, chills, and weight loss, Eyes: Negative for injury, mh7 pain, redness, and discharge, ENT: Negative for injury, pain, and discharge, Neck: Negative for injury, pain, and swelling, Cardiovascular: Negative for chest pain, palpitations, and edema, Respiratory: Negative for shortness of breath, cough, wheezing, and pleuritic chest pain, Back: Negative for injury and pain, : Negative for injury, bleeding, discharge, and swelling, MS/Extremity: Negative for injury and deformity, Skin: Negative for injury, rash, and discoloration, Neuro: Negative for headache, weakness, numbness, tingling, and seizure, Psych: Negative for depression, anxiety, suicide ideation, homicidal ideation, and hallucinations, Allergy/Immunology: Negative for hives, rash, and allergies, Endocrine: Negative for neck swelling, polydipsia, polyuria, polyphagia, and marked weight changes, Hematologic/Lymphatic: Negative for swollen nodes, abnormal bleeding, and unusual bruising. Exam: 02:20 Head/Face: Normocephalic, atraumatic. Eyes: Pupils equal round and reactive to light, mh7 extra-ocular motions intact. Lids and lashes normal. Conjunctiva and sclera are non-icteric and not injected. Cornea within normal limits. Periorbital areas with no swelling, redness, or edema. Neck: Trachea midline, no thyromegaly or masses palpated, and no cervical lymphadenopathy. Supple, full range of motion without nuchal rigidity, or vertebral point tenderness. No Meningismus. Chest/axilla: Normal chest wall appearance and motion. Nontender with no deformity. No lesions are appreciated. Cardiovascular: Regular rate and rhythm with a normal S1 and S2. No gallops, murmurs, or rubs. Normal PMI, no JVD. No pulse deficits. Respiratory: Lungs have equal breath sounds bilaterally, clear to auscultation and percussion. No rales, rhonchi or wheezes noted. No increased work of breathing, no retractions or nasal flaring. 02:20 Back: No spinal tenderness. No costovertebral tenderness. Full range of motion. Skin: Warm, dry with normal turgor. Normal color with no rashes, no lesions, and no evidence of cellulitis. MS/ Extremity: Pulses equal, no cyanosis. Neurovascular intact. Full, normal range of motion. Neuro: Awake and alert, GCS 15, oriented to person, place, time, and situation. Cranial nerves II-XII grossly intact. Motor strength 5/5 in all extremities. Sensory grossly intact. Cerebellar exam normal. Normal gait. 02:20 Constitutional: The patient appears in no acute distress, alert, awake, uncomfortable. 02:20 Abdomen/GI: Inspection: obese Bowel sounds: normal, in all quadrants, Palpation: moderate abdominal tenderness, in the epigastric area, mass, is not appreciated, rebound tenderness, is not appreciated, voluntary guarding, is not appreciated, involuntary guarding, is not appreciated, no appreciated organomegaly, Indicators: McBurney's point is not tender, Mcfadden's sign is negative, Rovsing's sign is negative, Obturator sign is negative, Psoas sign is negative, Liver: no appreciated palpable abnormalities, Hernia: not appreciated. Vital Signs: 01:55 BP 177 / 108; Pulse 67; Resp 16; Temp 98.8; Pulse Ox 100% on R/A; Weight 98.88 kg; ag7 Height 5 ft. (152.40 cm); Pain 7/10; 02:30 BP 154 / 92; Pulse 67; Resp 16 S; Pulse Ox 100% ; Pain 7/10; ag7 03:30 BP 151 / 98; Pulse 61; Resp 16 S; Pulse Ox 100% on R/A; Pain 5/10; ag7 04:00 Pain 5/10; ag7 04:30 BP 153 / 102; Pulse 72; Pulse Ox 99% on R/A; Pain 5/10; ag7 01:55 Body Mass Index 42.57 (98.88 kg, 152.40 cm) ag7 MDM: 06:50 Differential diagnosis: bowel obstruction, cholecystitis, Cholelithiasis, mh7 diverticulitis, gastritis, gastroesophageal reflux disease, non-specific abd pain, pancreatitis, Ureterolithiasis, urinary tract infection. Data reviewed: vital signs, nurses notes, lab test result(s), CBC, electrolytes, urinalysis, EKG, radiologic studies, CT scan. Data interpreted: Pulse oximetry: on room air is 99 %. Interpretation: normal. Counseling: I had a detailed discussion with the patient and/or guardian regarding: the historical points, exam findings, and any diagnostic results supporting the discharge/admit diagnosis, lab results, radiology results, the need for outpatient follow up, to return to the emergency department if symptoms worsen or persist or if there are any questions or concerns that arise at home. Response to treatment: the patient's symptoms have resolved after treatment, the patient's blood pressure is in an acceptable range, mental status has returned to baseline, the patient no longer shows bradycardia, the patient is not short of breath, the patient is not tachycardic, the patient's pain is gone, the patient's temperature has normalized, the patient is now symptom free, patient is well hydrated. 06:[address] [facility] 08/11 02:49 Order name: CBC with Diff; Complete Time: 04:18 [facility] 08/11 02:49 Order name: CMP; Complete Time: 04:18 [facility] 08/11 02:49 Order name: Lipase; Complete Time: 04:18 [facility] 08/11 02:49 Order name: CT Abd/Pelvis - IV Contrast Only [facility] 08/11 02:49 Order name: Troponin High Sensitivity; Complete Time: 04:18 [facility] 08/11 03:47 Order name: Urine Dipstick-Ancillary; Complete Time: 04:18 [facility] 08/11 02:49 Order name: IV Saline Lock; Complete Time: 03:38 [facility] 08/11 02:49 Order name: Labs collected and sent; Complete Time: 03:38 [facility] 08/11 02:49 Order name: Urine Dipstick-Ancillary (obtain specimen); Complete Time: 03:46 [facility] 08/11 02:49 Order name: Urine Test (obtain specimen); Complete Time: 03:47 [facility] 08/11 02:49 Order name: EKG; Complete Time: 02:50 [facility] 08/11 02:49 Order name: EKG - Nurse/Tech; Complete Time: 03:37 mh7 Administered Medications: 03:37 Drug: morphine 4 mg Route: IVP; Infused Over: 4 mins; Site: left antecubital; ag7 04:00 Follow up: Pain 5/10 Adult; Response: No adverse reaction; RASS: Alert and Calm (0) ag7 03:38 Drug: NS 0.9% 1000 ml Route: IV; Rate: 1 bolus; Site: left antecubital; ag7 04:54 Follow up: Response: No adverse reaction; IV Status: Completed infusion; IV Intake: ag7 1000ml 03:38 Drug: Zofran (Ondansetron) 4 mg Route: IVP; Site: left antecubital; ag7 04:00 Follow up: Response: No adverse reaction; Marked relief of symptoms ag7 Disposition Summary: 08/11/21 06:53 Discharge Ordered Location: Home [facility] Problem: new [facility] Symptoms: have improved [facility] Condition: Stable [facility] Diagnosis - Abdominal pain, unspecified [facility] - Nausea [facility] Followup: [facility] - With: Private Physician - When: 1 - 2 days - Reason: Worsening of condition, Recheck today's complaints, Continuance of care, Re-evaluation by your physician Discharge Instructions: - Discharge Summary Sheet [facility] - Nausea, Adult [facility] - Abdominal Pain, Adult, [id number] [facility] Forms: - Medication Reconciliation Form [facility] - Thank You Letter 7 - Antibiotic Education 7 - Prescription Opioid Use [facility] - Work release form eb Prescriptions: - ondansetron 4 mg Oral tablet,disintegrating - place 1 tablet by TRANSLINGUAL route every 8 hours As needed; 10 tablet; [facility] Refills: 0, Product Selection Permitted - Pepcid 20 mg Oral Tablet - take 1 tablet by ORAL route every 12 hours for 5 days; 10 tablet; Refills: 0, [facility] Product Selection Permitted - dicyclomine 20 mg Oral Tablet - take 1 tablet by ORAL route 4 times per day As needed; 20 tablet; Refills: 0, [facility] Product Selection Permitted Signatures: Dispatcher [employer] Devang Martinez MD MD [facility] Tatiana Sheets RN RN [facility]
--- NOTE | 2021-08-11 06:54 | ER ---
Nurse's Notes [facility] Name: Nasrin Borden Age: 31 yrs Sex: Female : 1990 Arrival Date: 08/11/2021 Time: 02:12 Bed 18 Private MD: Diagnosis: Abdominal pain, unspecified;Nausea Presentation: 08/11 01:55 Chief complaint: EMS states: Patient c/o epigastric pain that started 08/10/2021 at 1800 ag7 pain /, with nausea. Coronavirus screen: Client denies travel out of the [place] in the last 14 days. At this time, the client does not indicate any symptoms associated with coronavirus-19. Ebola Screen: Patient negative for fever greater than or equal to 101.5 degrees Fahrenheit, and additional compatible Ebola Virus Disease symptoms Patient denies exposure to infectious person. Patient denies travel to an Ebola-affected area in the 21 days before illness onset. Initial Sepsis Screen: Does the patient meet any 2 criteria? No. Patient's initial sepsis screen is negative. Does the patient have a suspected source of infection? No. Patient's initial sepsis screen is negative. Risk Assessment: Do you want to hurt yourself or someone else? Patient reports no desire to harm self or others. Onset of symptoms was August 10, 2021. Care prior to arrival: IV initiated. 20 GA, in the left antecubital area. 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 Flu vaccine is not up to date. - Social history:: Smoking status: Patient denies any tobacco usage or history of. Screenin:25 Abuse screen: Denies threats or abuse. Nutritional screening: No deficits noted. ag7 Tuberculosis screening: No symptoms or risk factors identified. Fall Risk None identified. Assessment: 02:23 General: Appears in no apparent distress. Behavior is calm, cooperative, appropriate ag7 for age. Pain: Complains of pain in epigastric area Pain does not radiate. Pain currently is 7 out of 10 on a pain scale. Quality of pain is described as aching, crampy, Pain began suddenly, Is continuous, Alleviated by nothing. Neuro: Level of Consciousness is awake, alert, obeys commands, Oriented to person, place, time, situation, Appropriate for age Guard Manager are equal bilaterally. Cardiovascular: Heart tones S1 S2 present. Respiratory: Airway is patent Trachea midline Respiratory effort is even, unlabored, Respiratory pattern is regular, symmetrical, Breath sounds are clear bilaterally. GI: Abdomen is obese, Bowel sounds present X 4 quads. Abd is soft and non tender X 4 quads. Reports upper abdominal pain, nausea. : Denies burning with urination. 03:30 Reassessment: Patient and/or family updated on plan of care and expected duration. Pain ag7 level reassessed. Patient is alert, oriented x 3, equal unlabored respirations, skin warm/dry/pink. abdominal pain 5/10 Patient states feeling better. Patient states symptoms have improved. 04:30 Reassessment: No changes from previously documented assessment. ag7 05:21 Reassessment: Patient and/or family updated on plan of care and expected duration. Pain ag7 level reassessed. Patient is alert, oriented x 3, equal unlabored respirations, skin warm/dry/pink. Patient return from CT Patient states feeling better. Patient states symptoms have improved. Vital Signs: 01:55 BP 177 / 108; Pulse 67; Resp 16; Temp 98.8; Pulse Ox 100% on R/A; Weight 98.88 kg; ag7 Height 5 ft. (152.40 cm); Pain 7/10; 02:30 BP 154 / 92; Pulse 67; Resp 16 S; Pulse Ox 100% ; Pain 7/10; ag7 03:30 BP 151 / 98; Pulse 61; Resp 16 S; Pulse Ox 100% on R/A; Pain 5/10; ag7 04:00 Pain 5/10; ag7 04:30 BP 153 / 102; Pulse 72; Pulse Ox 99% on R/A; Pain 5/10; ag7 01:55 Body Mass Index 42.57 (98.88 kg, 152.40 cm) ag7 ED Course: 02:12 Patient arrived in ED. ds4 02:13 Devang Bess MD is Attending Physician. 7 02:19 Tatiana Sheets, RN is Primary Nurse. ag7 02:22 Triage completed. ag7 02:25 Arm band placed on right wrist. ag7 02:25 No provider procedures requiring assistance completed. Maintain EMS IV. Dressing ag7 intact. Site clean \T\ dry. Gauge \T\ site: 20 gauge left AC. 02:26 Patient has correct armband on for positive identification. Bed in low position. Call ag7 light in reach. Side rails up X 1. 03:47 CBC with Diff Sent. ag7 03:47 CMP Sent. ag7 03:47 Lipase Sent. ag7 05:46 CT Abd/Pelvis - IV Contrast Only In Process Unspecified. EDMS 07:04 IV discontinued, intact, Pressure dressing applied. rankin Administered Medications: 03:37 Drug: morphine 4 mg Route: IVP; Infused Over: 4 mins; Site: left antecubital; ag7 04:00 Follow up: Pain 5/10 Adult; Response: No adverse reaction; RASS: Alert and Calm (0) ag7 03:38 Drug: NS 0.9% 1000 ml Route: IV; Rate: 1 bolus; Site: left antecubital; ag7 04:54 Follow up: Response: No adverse reaction; IV Status: Completed infusion; IV Intake: ag7 1000ml 03:38 Drug: Zofran (Ondansetron) 4 mg Route: IVP; Site: left antecubital; ag7 04:00 Follow up: Response: No adverse reaction; Marked relief of symptoms ag7 Medication: 05:22 VIS not applicable for this client. ag7 Intake: 04:54 IV: 1000ml; Total: 1000ml. ag7 Outcome: 06:53 Discharge ordered by . 7 07:04 Discharged to home ambulatory. rankin 07:04 Condition: good 07:04 Discharge instructions given to patient. 07:04 Patient left the ED. rankin Signatures: Dispatcher [employer] EDMS Alex Prado 4 Devang Bess MD MD 7 Au-StagerMarla RN RN rankin Tatiana Sheets RN RN [facility]
--- NOTE | 2021-08-11 07:37 | RAD REPORT ---
EXAM DESCRIPTION: CT - Abdomen Pelvis W Contrast - 08/11/2021 7:27 am CLINICAL HISTORY: Abdominal pain, acute, nonlocalized COMPARISON: CT abdomen and pelvis May 2020. TECHNIQUE: Biphasic, helical CT imaging of the abdomen and pelvis was performed following 100 ml non -ionic IV contrast. No oral contrast administered. All CT scans are performed using dose optimization technique as appropriate and may include automated exposure control or mA/KV adjustment according to patient size. FINDINGS: No suspicious findings in the lung bases. The liver, spleen, and pancreas show no suspicious findings. Gallbladder and biliary tree are also wi thout suspicious finding. Symmetric renal function is seen with no hydronephrosis or suspicious renal mass. No pyelonephritis o r acute parenchymal process. No bladder abnormalities. No adrenal abnormalities. Uterus and ovaries s how no suspicious findings. A 12 mm left ovarian cyst is identified. No dilated bowel loops or bowel wall thickening. Mild prominence of the small bowel seen on the prior study is not present on the current examination. No terminal ileum abnormality seen. No direct or in direct evidence for appendicitis. No free air, pneumatosis or focal inflammatory stranding. Minimal f ree fluid in the cul de sac is within physiologic limits. No hernia, mass or bulky lymphadenopathy. No suspicious bony findings. IMPRESSION: Contrast enhanced CT abdomen and pelvis showing no emergent finding. Minimal free fluid in the cul de sac is within physiologic limits. Small 12 mm right ovarian cyst is present. No cyst rupture or hemorrhage identifiable. No acute bowel finding on this study. No acute finding seen.
[2021-08-11 07:40] VITALS: TEMP 98.8
[2021-08-11 07:46] VITALS: BP 153/102; O2SAT 99
--- NOTE | 2021-08-11 09:11 | EKG ---
Test Date: 2021-08-11 Test Time: 03:22:25 Sales Representative: HEAVEN MEASUREMENT RESULTS: Intervals: Rate: 57 KS: 142 QRSD: 76 QT: 390 QTc: 379 Bailey: P: 47 KS: 142 QRS: 26 T: 22 INTERPRETIVE STATEMENTS: Sinus bradycardia Otherwise normal ECG Compared to ECG 05/10/2020 02:23:24 Sinus rhythm no longer present Electronically Signed On 08-11-21 09:10:34 CDT by Tomas De Santiago
== END 2021-08-11 07:04 | disposition home or self-care (01) ==
LOC: ER 01:52
DX: R10.13 Epigastric pain (principal); R11.0 Nausea; I10 Essential (primary) hypertension; Z88.1 Allergy status to other antibiotic agents
CPT/HCPCS: 36415; 74177; 80053; 81003; 83690; 84484; 85025; 93005; 96361; 96374; 96375; 99284; J2405; J7030; Q9967

== ENCOUNTER 2022-10-20 10:22 | Emergency (ER) | payer SELFPAY ==
--- OUTSIDE RECORDS SUMMARY | 2022-10-20 10:25 | XMS REPORT | Continuity of Care Document ---
:1990 Author Organization [facility] t Address [address] [facility] [address] [place] [address] Care Team Providers Name Role Phone TAMRA BERNARD Primary Care Physician Unavailable EVELIN STEEL Attending Clinician Unavailable Evelin Steel MD Attending Clinician TAMRA BERNARD Attending Clinician Unavailable Marco Antonio Tamra BENSON Attending Clinician [phone] Doctor Unassigned, [place] Attending Clinician Unavailable Jose Miguel Munroe DO Attending Clinician Suzanne Fernandez Attending Clinician SUZANNE CONTRERAS Attending Clinician Unavailable Kristen Galan Attending Clinician EVELIN STEEL Admitting Clinician Unavailable Payers Payer Name Policy Type Policy Number Effective Date Expiration Date Josue AVERY II [id number] 2022 00:00:00 [facility] [id number] 2018 00:00:00 Problems Condition Condition Condition Status Onset Resolution Last Treating Co mments Source Name Details Category Date Date Treatment Clinician Date Other Other Disease Active Univers depression depression 7-17 it y of 00:00: [place] [facility] Other Other Disease Active Univers general general 1-19 [place] of counseling [place] and advice and advice 00 Me dical for for Branch contracept contracept moo moo management management Trichomona Trichomona Disease Active U nivers l l 4-01 ity of vulvovagin vulvovagin [place] it[place] itis 00 Medical [place] BMI BMI Disease Active Univers 40.0-44.9, 40.0-44.9, 3-21 it y of adult adult 00:00: [place] 00 [facility] Branch Elevated Elevated Disease Active Unive rs blood blood 3-21 ity of pressure pressure 00:00: [place] reading reading 00 Medical without without Branch diagnosis diagnosis of of hypertensi hypertensi on on Positive Positive Disease Active Unive rs depression depression 3-21 [place] of screening screening [place] Essential Essential Disease Active Uni vers hypertensi hypertensi 3-21 it y of on, benign on, benign [place] [facility] [place] Family Family Disease Active Univers planning planning 3-21 [place] of counseling counseling [place] Family Family Disease Active Univers history of history of 3-21 it y of diabetes diabetes 00:00: [place] mellitus mellitus 00 Medica l Branch Morbid Morbid Disease Active Univers obesity obesity 8-28 ity of 00:00: [place] [facility] Allergies, Adverse Reactions, Alerts Allergy Allergy Status Severity Reaction(s) Onset Inactive Treating Comm ents Source Name Type Date Date Clinician AZITHROM DRUG Active Hallucinates Un edwige YCIN INGREDI 8-12 ity of 00:00: [place] [facility] Branch Azithrom Propensi Active Hallucinatio Univers ycin ty to ns 8-12 ity of adverse 00:00: [place] reaction [address] [place] [address] s Branch Social History Social Habit Start Date Stop Date Quantity Comments Source History of tobacco Current smoker Un iversity of use [facility] Gender identity Universit y of [facility] Sexual orientation Univer sity of [facility] Exposure to Not sure University of SARS-CoV-2 (event) [facility] Alcohol intake 2022-09-27 2022-09-27 0 /d University of 00:00:00 00:00:00 [facility] History of Social 2022-09-16 2022-09-16 Univers ity of function 00:00:00 00:00:00 [facility] Tobacco use and 2022-09-16 2022-09-16 Smokeless Universit y of exposure 00:00:00 00:00:00 tobacco non-user [facility] Sex Assigned At [birth year] Universit y of 00:00:00 00:00:00 [facility] Smoking Status Start Date Stop Date Source Ex-smoker 2022-09-16 00:00:00 2022-09-16 00:00:00 Universi ty [facility] Medications Ordered Filled Start Stop Current Ordering Indication Dosage Frequency Signature Comments Components Source Medication Medication Date Date Medication? Clinician (SIG) Name Name potassium 2022- No 10meq 10 mEq, IV Univers chloride in 09-27 Piggyback, i ty of water 10 20:00: 21:59 Q1H, 2 [place] mEq/100 mL 00 :00 doses, Medical RTU 10 mEq First dose [facility] on Fri09/27/22 at 1500, Last dose on Fri09/27/22 at 1600, Administer over 60 Minutes, 100 mL KCL 2022- No 40meq 40 mEq, Univers (KLOR-CON 09-27 Oral, ity of M20) tablet 19:15: 19:34 ONCE, 1 [place] 40 mEq 00 :00 dose, On Medical Fri [place] 09/27/22 at 1415, CATARINO ketorolac 2022- No 30mg 30 mg, Unive rs (TORADOL) 09-27 Slow IV ity of injection 18:15: 18:21 Push, ONCE [place] 30 mg 00 :00 NOW, 1 Medical dose, On Branch 09/27/22 at 1315, CATAR[place] NaCl 0.9% 2022- No 1000mL at 999 Uni vers (NS) bolus 09-27 mL/hr, ity of infusion 18:15: 21:59 1,000 mL, Eran as 1,000 mL 00 :00 IV Medical Piggyback, [place] ONCE, 1 dose, On Fri09/27/22 at 1315, STAT dexamethaso 2022-0 2022- No 10mg 10 mg, Uni vers ne sod phos 09-27 Slow IV ity of PF 17:30: 18:23 Push, [place] injection 00 :00 ONCE, 1 Medical 10 mg dose, On Branch Fri09/27/22 at 1230, 1 mL KCL 20 mEq 2022-0 Yes [id number] 20meq Take 1 Univers tablet 7-28 tablet by ity of 00:00: mouth in [place] 00 the Medical morning. Branch Oral 2022-0 Yes [id number] 500mL Take 500 Univ ers Electrolyte 7-28 mL by ity of s 00:00: mouth [place] (PEDIALYTE 00 every 6 Medica l ADVANCED (six) Branch CARE) hours. solution hydroCHLORO 2022-0 Yes [id number] 25mg Take 1 U nivers thiazide 25 7-17 tablet by ity of mg tablet 00:00: mouth in [facility] the Medical morning. Branch hydroCHLORO 2022-0 Yes [id number] 25mg Take 1 U nivers thiazide 25 7-17 tablet by ity of mg tablet 00:00: mouth in [facility] the Medical morning. Branch hydroCHLORO 2022-0 Yes [id number] 25mg Take 1 U nivers thiazide 25 7-17 tablet by ity of mg tablet 00:00: mouth in [facility] 00 the Medical morning. Branch hydroCHLORO 2022-0 Yes [id number] 25mg Take 1 U nivers thiazide 25 7-17 tablet by ity of mg tablet 00:00: mouth in [facility] 00 the Medical morning. Branch No known No Univers medications -19 ity of 09:08: [address] Immunizations Ordered Filled Immunization Date Status Comments [facility] e Immunization Name Name Influenza Virus 2020-02-07 Completed Universit y of Vaccine Quad IM 00:00:00 [place] Med ical Multi-dose 6+ MO [place] Influenza Virus 2020-02-07 Completed Universit y of Vaccine [place] IM 00:00:00 [place] Med ical Multi-dose 6+ MO [place] Influenza Virus 2020-02-07 Completed Universit y of Vaccine [place] IM 00:00:00 [place] Med ical Multi-dose 6+ MO Branch Influenza Virus 2020-02-07 Completed Universit y of Vaccine [place] IM 00:00:00 [place] Med ical Multi-dose 6+ MO Branch HEP B, Adult Dosage 2016-10-15 Completed Unive rsity of 00:00:00 [facility] HEP B, Adult Dosage 2016-10-15 Completed Unive rsity of 00:00:00 [facility] HEP B, Adult Dosage 2016-10-15 Completed Unive rsity of 00:00:00 [facility] HEP B, Adult Dosage 2016-10-15 Completed Unive rsity of 00:00:00 [facility] Branch HEP B, Adult Dosage 2016-09-17 Completed Unive rsity of 00:00:00 [facility] HEP B, Adult Dosage 2016-09-17 Completed Unive rsity of 00:00:00 [facility] HEP B, Adult Dosage 2016-09-17 Completed Unive rsity of 00:00:00 [facility] HEP B, Adult Dosage 2016-09-17 Completed Unive rsity of 00:00:00 [facility] TDAP (ADACEL) 2012-10-28 Completed University of VACCINE 00:00:00 [facility] TDAP (ADACEL) 2012-10-28 Completed University of VACCINE 00:00:00 [facility] TDAP (ADACEL) 2012-10-28 Completed University of VACCINE 00:00:00 [facility] TDAP (ADACEL) 2012-10-28 Completed University of VACCINE 00:00:00 [facility] TDAP (ADACEL) 2012-10-28 Completed University of VACCINE 00:00:00 [facility] TDAP (ADACEL) 2012-10-28 Completed University of VACCINE 00:00:00 [facility] Vital Signs Vital Name Observation Time Observation Value Comments Source Systolic blood 2022-09-27 21:00:00 126 mm[Hg] Univer sity of pressure [facility] Diastolic blood 2022-09-27 21:00:00 73 mm[Hg] Unive rsity of pressure [facility] Heart rate 2022-09-27 21:00:00 68 /min Universi ty of [facility] Respiratory rate 2022-09-27 21:00:00 19 /min Univ ersity of [facility] Oxygen saturation in 2022-09-27 21:00:00 96 /min [facility] Arterial blood by [facility] Pulse oximetry Branch Body temperature 2022-09-27 16:37:00 37.22 Shantelle Univ ersity of [place] [facility] Body height 2022-09-27 16:37:00 152.4 cm Universi ty of [place] [facility] Body weight 2022-09-27 16:37:00 96.163 kg Universi ty of [place] [facility] BMI 2022-09-27 16:37:00 41.40 kg/m2 Universi ty of [place] [facility] Systolic blood 2022-09-16 14:28:00 160 mm[Hg] Univer sity of pressure [place] [facility] Diastolic blood 2022-09-16 14:28:00 65 mm[Hg] Unive rsity of pressure [place] [facility] Heart rate 2022-09-16 14:21:00 61 /min Universi ty of [place] [facility] Body temperature 2022-09-16 14:20:00 36.06 Shantelle Univ ersity of [place] [facility] Respiratory rate 2022-09-16 14:20:00 18 /min Univ ersity of [place] [facility] Body height 2022-09-16 14:20:00 152.4 cm Universi ty of [place] [facility] Body weight 2022-09-16 14:20:00 97.75 kg Universi ty of [place] [facility] BMI 2022-09-16 14:20:00 42.09 kg/m2 Universi ty of [place] [facility] Diastolic blood 2021-03-21 15:03:00 90 mm[Hg] Unive rsity of pressure [place] [facility] Systolic blood 2021-03-21 15:03:00 140 mm[Hg] Univer sity of pressure [place] [facility] Heart rate 2021-03-21 14:47:00 62 /min Universi ty of [place] [facility] Body temperature 2021-03-21 14:47:00 35.89 Shantelle Univ ersity of [place] [facility] Respiratory rate 2021-03-21 14:47:00 16 /min Univ ersity of [place] [facility] Body height 2021-03-21 14:47:00 152.4 cm Universi ty of [place] [facility] Body weight 2021-03-21 14:47:00 101.407 kg [facility]i ty [facility] [place] [facility] BMI 2021-03-21 14:47:00 43.66 kg/m2 [facility]i ty [facility] [place] [facility] Procedures Procedure Date / Time Performed Performing Clinician Sourc e HB ECG ROUTINE & 2022-09-27 19:48:39 Evelin Steel [facility] RHYTHM STRIP [facility] POCT TEST 2022-09-27 18:21:00 Evelin Steel [facility] MAGNESIUM 2022-09-27 18:20:00 Evelin Steel [facility] TROPONIN I 2022-09-27 18:20:00 Evelin Steel [facility] COMP. METABOLIC PANEL 2022-09-27 18:20:00 Evelin Steel [facility] ([id number]) [facility] CBC WITH DIFF 2022-09-27 18:20:00 Evelin Steel [facility] D-DIMER 2022-09-27 18:20:00 Evelin Steel [facility] URINALYSIS 2022-09-27 18:20:00 Evelin Steel [facility] XR KNEE 3 VW LEFT 2022-09-27 18:04:48 Evelin Steel [facility] XR SHOULDER 2+ VW LEFT 2022-09-27 18:04:48 Evelin Steel [facility] ASSIGNMENT OF BENEFITS 2022-09-16 14:05:36 Doctor Unassigned, No [facility] POCT TEST 2021-03-21 15:21:00 Tamra Bernard [facility] Encounters Start End Encounter Admission Attending Care Care Encounter Source Date/Time Date/Time Type Type Clinicians Facility Department ID 2022-09-27 2022-09-27 Emergency X DAMIÁN [facility] ERT [id number] Univers 11:38:00 17:01:00 EVELIN russo [facility] 2022-09-27 2022-09-27 Emergency Damián [facility] [id number] Univers 11:38:00 17:01:00 Evelin ROMERO [id number] i ty NONA 4.2.7.2.686 [facility] [id number] [place] [address] Branch 2022-09-17 2022-09-17 Outpatient R MARCO ANTONIO [facility] [id number] Univers 09:45:00 09:45:00 TAMRA russo o nancy [facility] 2022-09-16 2022-09-16 Outpatient R MARCO ANTONIO, [facility] [id number] Univers 09:45:00 10:21:14 TAMRA russo o [facility] 2022-09-16 2022-09-16 [facility] [id number] Univers 09:45:00 10:21:14 Visit Tamra Issa INTERNATIONAL MANAGER [id number] [facility] [id number] Eran as MATERNAL [phone] [facility] & CHILD [address] [place] [address] 2022-09-16 2022-09-16 Orders Doctor RAMIREZ [id number] Univers 00:00:00 00:00:00 Only Unassigned, JADYN [id number] ity of [place] [facility] 4.2.7.2.686 Eran as [id number] [address] 2021-03-21 2021-03-21 Outpatient R AKINSITEA, [facility] [id number] Univers 09:00:00 09:25:56 TAMRA russo o [facility] 2021-03-21 2021-03-21 [facility] [id number] Univers 09:00:00 09:25:56 Visit [facility] Maegan INTERNATIONAL MANAGER [id number] [facility] [id number] Eran as MATERNAL [id number] [facility] & CHILD [address] [place] [address] 2021-03-21 2021-03-21 [facility] [id number] Univers 09:00:00 09:00:00 TAMRA mookjackson o [facility] 2020-05-23 2020-05-23 Patient Ludwig [facility] [id number] Univers 00:00:00 00:00:00 Outreach Jose Miguel [facility] [id number] i ty of [facility] 4.2.7.2.686 [place] [id number] Ut dical [address] [place] [address] 2019-07-05 2019-07-05 [facility] [id number] Univers 10:19:00 10:54:18 Visit Suzanne R INTERNATIONAL MANAGER [id number] ity of REGIONAL 4.2.7.2.686 Eran as MATERNAL [phone] [facility] & CHILD [address] [place] [address] 2019-07-05 2019-07-05 [facility] [id number] 10:19:00 10:54:18 Visit Suzanne R INTERNATIONAL MANAGER 350.1.13.10 REGIONAL 4.2.7.2.686 MATERNAL [id number] & [address] 2019-07-05 2019-07-05 [facility] [id number] Univers 10:30:00 10:30:00 BEATRIZMERLY ity o f [facility] 2019-07-05 2019-07-05 Orders Doctor ASHLEY [id number] Univers 00:00:00 00:00:00 Only Unassigned, JADYN 350.1.13.10 ity of [place] [facility] 4.2.7.2.686 Eran as [id number] [address] 2019-04-16 2019-04-16 Office Francisco [facility] [id number] Univers 08:24:03 08:56:28 Visit Kristen Durant INTERNATIONAL MANAGER 350.1.13.10 it y of REGIONAL 4.2.7.2.686 Eran as MATERNAL [id number] [facility] & CHILD [address] [place] [address] 2019-04-16 2019-04-16 Orders Doctor ASHLEY [id number] Univers 00:00:00 00:00:00 Only Unassigned, JADYN 350.1.13.10 ity of [place] [facility] 4.2.7.2.686 Eran as [id number] [address] Results Test Description Test Time Test Comments Results Result Comments Source TROPONIN I 2022-09-27 19:11:22 Test Item Value Reference Range Interpretation Comme nts TROPONIN I (test code = 2694190314) 0.013 ng/mL <=0.034 BILL (test code = BILL) Reference (Normal) Range (defined by the 99th percentile reference limit): <= 0.034 ng/mL Note: Cardiac troponin begins to rise 3-4 hours after the onset of ischemia. Repeat in 4-6 hours if the sample was drawn within 3-4 hours of the onset of the symptom and found normal. Diagnosis of myocardial injury is made with acute changes in cTn concentrations with at least one serial sample above the 99th percentile upper reference limit (URL), taken together with the patient's clinical presentation. Biotin has been reported to cause a negative bias, interpret results relative to patient's use of biotin. Lab Interpretation (test code = Normal 93986-4) [facility]. METABOLIC PANEL ([id number])2022-09-27 19:02:48 Test Item Value Reference Range Interpretation Comments NA (test code = 139 mmol/L 135-145 1595823579) K (test code = 2.9 mmol/L 3.5-5.0 LL 4767130218) CL (test code = 97 mmol/L 98-108 L 6543800483) CO2 TOTAL (test code = 32 mmol/L 23-31 H 2179910728) AGAP (test code = 10 2-16 0529379498) BUN (test code = 9 mg/dL 7-23 0959485390) GLUCOSE (test code = 132 mg/dL 70-110 H 6995050234) CREATININE (test code = 0.67 mg/dL 0.50-1.04 3274412134) TOTAL BILI (test code = 0.4 mg/dL 0.1-1.3 1648558475) CALCIUM (test code = 9.3 mg/dL 8.6-10.6 3152022463) T PROTEIN (test code = 8.7 g/dL 6.3-8.2 H 2137990136) ALBUMIN (test code = 4.3 g/dL 3.5-5.0 0861787704) ALK PHOS (test code = 82 U/L 34-122 1461869005) ALTv (test code = 18 U/L 5-35 1742-6) AST(SGOT) (test code = 26 U/L 13-40 6818904253) eGFR (test code = 100.8 mL/min/1.73m2 2900245554) BILL (test code = BILL) Association of Glomerular Filtration Rate (GFR) and Staging of Kidney Disease* + --+ --+ ------+| GFR (mL/min/1.73 m2) ?| With Kidney Damage ?| ?Without Kidney Damage+ --------+ --------+ +| ?>90 ?| ?Stage one ?| ? Normal ?+ ---+ ---+ -------+| ?60-89 ?| ?Stage two ?| ? Decreased GFR ? + --+ --+ ------+| ?30-59 ?| ?Stage three ?| ? Stage three ? + --+ --+ ------+| ?15-29 ?| ?Stage four ? | ? Stage four ?+ ---+ ---+ -------+| ?<15 (or dialysis) ? ?| ?Stage five ? | ? Stage five ?+ ---+ ---+ -------+ *Each stage assumes the associated GFR level has been in effect for at least three months. ?Stages 1 to 5, with or without kidney disease, indicate chronic kidney disease. Notes: Determination of stages one and two (with eGFR >59mL/min/1.73 m2) requires estimation of kidney damage for at least three months as defined by structural or functional abnormalities of the kidney, manifested by either:Pathological abnormalities or Markers of kidney damage (including abnormalities in the composition of the blood or urine or abnormalities in imaging tests). Lab Interpretation Abnormal (test code = 31994-5) [facility] 19:00:34 Test Item Value Reference Range Interpretation Comments MAGNESIUM (test code = 6819318474) 1.9 mg/dL 1.7-2.4 Lab Interpretation (test code = Normal 50428-1) [facility][id number] 18:56:37 Test Item Value Reference Interpretation Comments Range D-DIMER (test code = 0.54 See_Comment H [Autom ated 9649821923) message] The system which generated this result transmitted reference range : <0.41 ?g/mL (FEU). The reference range was not used to interpret this result as normal/abnormal . BILL (test code = This test may be BILL) used in conjunction with a clinical pretest probability (PTP) assessment model to exclude venous thromboembolism (VTE) in patients suspected of deep venous thrombosis (DVT) and pulmonary embolism (PE) A D-Dimer value less than 0.50 ?g/ml (FEU) has a negative predicative value of 96 to 100% (95% CI)and 97 to 100% (95% CI) as an aid in the diagnosis of deep vein thrombosis (DVT) and pulmonary embolism when there is low or moderate pretest probability of PE or DVT. D-Dimer values are expressed in initial fibrinogen equivalent units (FEU)" The assay results should be used with other information, including the clinical context, in forming a diagnosis. Lab Interpretation Abnormal (test code = 38481-0) [facility] WITH [id number] 18:49:15 Test Item Value Reference Range Interpretation Comments WBC (test code = 6.48 See_Comment [Automated 1965-2) message] The sy stem which generated this result transmitted reference range : 4.30 - 11.10 10*3/?L. The reference range was not used to interpret this result as normal/abnormal . RBC (test code = 4.88 See_Comment [Automated 380-8) message] The sy stem which generated this result transmitted reference range : 3.93 - 5.25 10*6/?L. The reference range was not used to interpret this result as normal/abnormal . HGB (test code = 12.2 g/dL 11.6-15.0 718-7) HCT (test code = 38.2 % 35.7-45.2 4544-3) MCV (test code = 78.3 fL 80.6-95.5 L 787-2) MCH (test code = 25.0 pg 25.9-32.8 L 785-6) MCHC (test code = 31.9 g/dL 31.6-35.1 786-4) RDW-SD (test code = 44.1 fL 39.0-49.9 04282-2) RDW-CV (test code = 15.5 % 12.0-15.5 788-0) PLT (test code = 321 See_Comment [Automated 414-3) message] The sy stem which generated this result transmitted reference range : 166 - 358 10*3/ ?L. The reference r nathanael was not used to interpret this result as normal/abnormal . MPV (test code = 12.4 fL 9.5-12.9 66846-5) NRBC/100 WBC (test 0.0 See_Comment [Automat ed code = 2448408172) message] The system which generated this result transmitted reference range : 0.0 - 10.0 /100 WBCs. The refer ence range was not u sed to interpret th is result as normal/abnormal . NRBC x10^3 (test code See_Comment [Auto mated = 3785203468) message] The s ystem which generated this result transmitted reference range : 10*3/?L. The reference range was not used to interpret this result as normal/abnormal . GRAN MAT (NEUT) % 64.5 % (test code = 770-8) IMM GRAN % (test code 0.00 % = 0368640907) LYMPH % (test code = 27.3 % 736-9) MONO % (test code = 6.8 % 5905-5) EOS % (test code = 0.9 % 713-8) BASO % (test code = 0.5 % 706-2) GRAN MAT x10^3(ANC) 4.18 10*3/uL 1.88-7.09 (test code = 2058163097) IMM GRAN x10^3 (test 0.00-0.06 code = 7390241116) LYMPH x10^3 (test code 1.77 10*3/uL 1.32-3.29 = 731-0) MONO x10^3 (test code 0.44 10*3/uL 0.33-0.92 = 742-7) EOS x10^3 (test code = 0.06 10*3/uL 0.03-0.39 711-2) BASO x10^3 (test code 0.03 10*3/uL 0.01-0.07 = 704-7) Lab Interpretation Abnormal (test code = 78247-5) [facility] [id number] 18:21:00 Test Item Value Reference Range Interpretation Comments POCT PREG (test code = 1605) Negative On board controls acceptable with Yes C Line (test code = 5713) POCT PREG LOT # (test code = 3575) [id number] POCT PREG TEST DATE (test 03-05-2024 code = 3576) Lab Interpretation (test code = Normal 10089-5) [facility] Hospital[facility]IP[facility] [id number] 04:03:03 Test Item Value Reference Range Interpretation Comments CHOLESTEROL (test 161 MG/DL <200 code = 2210) TRIGLYCERIDES (test 67 MG/DL <150 code = 2232) HDL CHOLESTEROL (test 56 MG/DL >39 code = 2220) CALC LDL CHOL (test 90 MG/DL <100 NOTE: C ALCULATED LDL code = 2237) IS BASED ON KEVIN-BOYD METHOD WHICHINCLUDES ADJUSTABLE TRIGLYCERIDE:VL DL CHOLESTEROL RAT IO.THIS FACTOR VARIES B Y MEASURED TRIGLY CERIDE AND NON-HDLCHOL ESTEROL CONCENTRATIONS WITH INCREASED CALCU LATED LDL SEENIN HIGH ER TRIGLYCERIDE OR LOWER NON-HDL SPECIME NS. FOR MOREINFORMATION , SEE CLIENT ANNOUNCE MENT AT [email or web address] RATIO LDL/HDL 1.61 RATIO <3.22 (test code = 2238) COMPREHENSIVE METABOLIC [id number] 04:03:03 Test Item Value Reference Range Interpretation Comments GLUCOSE (test code = 100 MG/DL 70-99 H 2216) BUN (test code = 5 MG/DL 6-20 L 2207) CREATININE (test 0.77 MG/DL 0.60-1.30 code = 2214) eGFR (2020 CKD-EPI) 104 >60 (test code = 38190) ML/MIN/1.73 CALC BUN/CREAT (test 6 RATIO 6-28 code = 2235) SODIUM (test code = 137 MEQ/L 370-407 9486) POTASSIUM (test code 3.8 MEQ/L 3.5-5.4 = 222) CHLORIDE (test code 100 MEQ/L 95-107 = 221) CARBON DIOXIDE (test 28 MEQ/L 19-31 code = 220) CALCIUM (test code = 9.4 MG/DL 8.5-10.5 2208) PROTEIN, TOTAL (test 7.8 G/DL 6.1-8.3 code = 222) ALBUMIN (test code = 4.3 G/DL 3.5-5.2 2200) CALC GLOBULIN (test 3.5 G/DL 1.9-3.7 code = 2240) CALC A/G RATIO (test 1.2 RATIO 1.0-2.6 code = 2234) BILIRUBIN, TOTAL 0.3 MG/DL See_Comment [Automated message] (test code = 2207) The syste m which generated this result transmitted ref erence range: <=1.2. T he reference range was not used to int erpret this result as normal/abnormal . ALKALINE PHOSPHATASE 71 U/L 40-114 (test code = 2204) AST (test code = 14 U/L 9-40 2217) ALT (test code = 12 U/L 5-40 UNLESS OTH ERWISE 2218) INDICATED, ALL TESTING PERFORM [facility], [facility]. [address] [place] [id number] [place] [address] DIRECTOR: KOTA ORTEGA M.D. CLIA NUMBER [id number] CAP ACCREDITATION N O. [id number] POCT [id number] 15:21:00 Test Item Value Reference Range Interpretation Comments POCT PREG (test code = 1605) Negative On board controls acceptable with C Yes Line (test code = 3574) POCT PREG LOT # (test code = 3575) POCT PREG TEST DATE (test code = 3576) [facility] Notes Date/Time Note Provider Source 2022-09-27 Formatting of this note might be differe nt from the original. Marcella Armendariz RN [facility] 17:00:05-00:00 Pt discharged with diagnosis of syncope and collapse, dehydration, and hypokalemia. Printed and verbal instructions reviewed with and given to patient. Prescriptions given x 2. Pt verbalized understandi ng of teaching, medications, and recommended follow-up. Denies questions or concerns at this time. Pt assisted to waiting room at discharge via wheelchair by ED RN. Appears in no apparent distress. Wait ing for family member to arrive to transport vito e. 2022-09-27 Formatting of this note might be differe nt from the original. 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 Complaining of left knee pain. [place] nauseous, ems gave 4mg zofran. No LOC. Electronically signed by Debby De La Garza RN at 11:36 AM CDT 2022-09-27 Formatting of this note is different from the or iginal. [facility] - Health 11:33:00-00:00 [facility] Emergency Department Note Patient Name: Nasrin Felix Date of : 1990 32 year old female Treatment Room: [place] [address] Primary Care Physician: Tamra Bernard Patient Escorted by: Self [9] Mode of Arrival: EMS - [facility] ([place]) [43] EMS Treatment Prior to ED Arrival: PAPER SHEETER treatment: Saline lock;clinical research monitor;Medic ation (comment) PAPER SHEETER treatment comments: "something for nausea" Travel and Exposure Screening: Symptoms Does patient have any of these symptoms?: (not r ecorded) Exposure Screening Has patient had contact with someone with a communicable disease in the last month?: (not recorded) Diseases exposed to:: (not recorded) Is Patient ?: (not recorded) Exposure Date: (not recorded) Chief Complaint: Chief Complaint Patient presents with Fall Dizziness History of Present Illness: 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 Complaining of left knee pain. [place] nauseous, ems gave 4mg zofran. No LOC History provided by: Patient and spouse language interpreter used: No Syncope Episode history: Single Most recent episode: Today Duration: 2 minutes Progression: Partially resolved Chronicity: New Context comment: Patient was at her work porch, and sudeenly became dizzy, lightheaded and fell onto the floor Witnessed: yes Relieved by: Lying down Worsened by: Nothing Ineffective treatments: None tried Associated symptoms: diaphoresis, dizziness, [place] sea and weakness Associated symptoms: no anxi ety, no chest pain, no confusion, no fever, no focal weakness, no headaches, no palpitations, no seizures, no shortness of breath and no vomiting Associated symptoms comment: Feeling lightheaded Past Medical History/Immunizations: Past Medical History: Diagnosis Date Anemia in the past Anxiety ongoing, not currently taking medication. Breast disorder 2014 was told she had excess breast tissue Chlamydia 2006 Depression ongoing, not currently taking medication Family history of diabetes mellitus 05/21/2018 Hypertension 01/2022 not on medication- was seen at [facility] and given 2 months medication Substance abuse in the past, marijuana last used 2006 Trauma Trichomonal vulvovaginitis 06/01/2018 Tetanus received in last 5 years: Unknown Allergies: Allergies Allergen Reactions Zithromax [Azithromycin] Hallucinations Past Social History: Tobacco Use Former Smokeless Tobacco: Never used smokeless tobacco . Alcohol Use Not Currently; 0.0 standard drinks of alcohol per week; 0 Standard drinks or equivalent. Drug Use Not Currently; Hydrocodone. Comments: / a 10 mg daily as needed Sexual Activity Sexually active; Partners: Male; Control/ Protection: None. Comments: last sexual intercourse 08/2022 Past Surgical History: Past Surgical History: Procedure Laterality Date SECTION 2012 DILATION AND CURETTAGE (SHX) 2006 Review of Systems: Review of Systems Constitutional: Positive for diaphoresis. Negative for activity change, appetite change, fatigue, fever and unexpected weight change. HENT: Negative for congestio n, ear pain, mouth sores, nosebleeds, rhinorrhea, sinus pressure, sore throat and voice change. Eyes: Negative for pain, discharge, redness, itc su and visual disturbance. Respiratory: Negative for co ugh, choking, chest tightness, shortness of breath, wheezing and stridor. Cardiovascular: Positive for syncope. Negative for chest pain, palpitations and leg swelling. Gastrointestinal: Positive f or nausea. Negative for abdominal distention, abdominal pain, blood in stool, constipation, diarrhea and vomiting. Genitourinary: Negative for dysuria, urgency, polyuria, frequency, hematuria, flank pain, decreased urine volume, difficulty urinating and genital sores. Musculoskeletal: Negative fo r arthralgias, back pain, gait problem, joint swelling, myalgias, neck pain and neck stiffness. Skin: Negative for color change, pallor, rash an d wound. Neurological: Positive for d izziness and weakness. Negative for tremors, focal weakness, seizures, syncope, speech difficulty and headaches. Psychiatric/Behavioral: Nega tive for agitation, confusion, dysphoric mood, hallucinations, self-injury and suicidal ideas. The patient is not nervous/anxious. All other systems reviewed and are negative. Hematological: Negative for adenopathy, cold intolerance and heat intolerance. Does not bruise/bleed easily. Endocrine: Negative for cold intolerance, heat intolerance, polydipsia, polyphagia and polyuria. Physical Exam: ED Triage Vitals [09/27/22 1137] Weight 96.2 kg (212 lb) Actual or estimated Estimated by patient/family report Height 1.524 m (5') BP (!) 146/90 Pulse 85 Resp 14 Temp 37.2 ?C (99 ?F) Temp source Oral SpO2 95 % Measured on Room air Physical Exam Vitals and nursing note reviewed. Constitutional: General: She is awake. She is not in acute dist ress. Appearance: She is well-dev eloped, well-groomed and overweight. She is ill- appearing and diaphoretic. She is not toxic-appearing. HENT: Head: Normocephalic and atraumatic. Right Ear: External ear normal. Left Ear: External ear normal. Nose: Nose normal. Mouth/Throat: Pharynx: No oropharyngeal exudate. Eyes: General: No scleral icterus. Right eye: No discharge. Left eye: No discharge. Conjunctiva/sclera: Conjunctivae normal. Pupils: Pupils are equal, round, and reactive t o light. Neck: Thyroid: No thyromegaly. Vascular: No JVD. Trachea: No tracheal deviation. Cardiovascular: Rate and Rhythm: Normal rate and regular rhythm . Heart sounds: Normal heart sounds. No murmur he shiva. No friction rub. No gallop. Pulmonary: Effort: Pulmonary effort is normal. No respirat ory distress. Breath sounds: Normal breath sounds. No stridor . No wheezing or rales. Chest: Chest wall: No tenderness. Abdominal: General: Bowel sounds are normal. There is no d istension. Palpations: Abdomen is soft. There is no mass. Tenderness: There is no abd ominal tenderness. There is no guarding or rebound. Musculoskeletal: General: No deformity. Right shoulder: Normal. Left shoulder: Tenderness p resent. No bony tenderness or crepitus. Decreased range of motion. Cervical back: Normal range of motion and neck supple. Left knee: No swelling, def ormity, effusion or erythema. Decreased range of motion. Tenderness present over the lateral joint line. Lymphadenopathy: Cervical: No cervical adenopathy. Skin: General: Skin is warm. Coloration: Skin is not pale. Findings: No erythema or rash. Neurological: Mental Status: She is alert and oriented to per son, place, and time. Cranial Nerves: No cranial nerve deficit. Motor: No abnormal muscle tone. Coordination: Coordination normal. Deep Tendon Reflexes: Reflexes are normal and s ymmetric. Reflexes normal. Psychiatric: Behavior: Behavior normal. Behavior is cooperat moo. Thought Content: Thought content normal. Judgment: Judgment normal. Radiology: XR KNEE 3 VW LEFT Final Result EXAM: XR KNEE 3 VW LEFT HISTORY: 32 years-old Female; syncope, fall, [place] n . COMPARISON: None FINDINGS: Radiographs of the left knee were obtained. No a cute fracture or traumatic dislocation is visualized. The alignment is main tained. Mild soft tissue swelling is noted. The joint spaces are preserved. IMPRESSION No acute osseous abnormality. Preliminary Report Dictated by Resident: Erin Farah MD., have reviewed this stud y and agree with the above report. XR SHOULDER 2+ VW LEFT Final Result EXAM: XR SHOULDER 2+ VW LEFT HISTORY: 32 years-old Female; syncope, fall, [place] n . COMPARISON: None FINDINGS: Radiographs of the left shoulder were obtained. No acute fracture or traumatic dislocation is visualized. The alignme nt is maintained. Mild soft tissue swelling is present about the shoulder. The joint spaces are preserved. IMPRESSION No acute osseous abnormality. Preliminary Report Dictated by Resident: Erin Farah MD., have reviewed this stud y and agree with the above report. Lab Results: Lab Results CBC WITH DIFF - Abnormal Result Value Ref Range WBC 6.48 4.30 - 11.10 10*3/?L RBC 4.88 3.93 - 5.25 10*6/?L HGB 12.2 11.6 - 15.0 g/dL HCT 38.2 35.7 - 45.2 % MCV 78.3 (*) 80.6 - 95.5 fL MCH 25.0 (*) 25.9 - 32.8 pg MCHC 31.9 31.6 - 35.1 g/dL RDW-SD 44.1 39.0 - 49.9 fL RDW-CV 15.5 12.0 - 15.5 % PLT 321 166 - 358 10*3/?L MPV 12.4 9.5 - 12.9 fL NRBC/100 WBC 0.0 0.0 - 10.0 /100 WBCs NRBC x10^3 <0.01 10*3/?L GRAN MAT (NEUT) % 64.5 % IMM GRAN % 0.00 % LYMPH % 27.3 % MONO % 6.8 % EOS % 0.9 % BASO % 0.5 % GRAN MAT x10^3(ANC) 4.18 1.88 - 7.09 10*3/uL IMM GRAN x10^3 <0.03 0.00 - 0.06 10*3/uL LYMPH x10^3 1.77 1.32 - 3.29 10*3/uL MONO x10^3 0.44 0.33 - 0.92 10*3/uL EOS x10^3 0.06 0.03 - 0.39 10*3/uL BASO x10^3 0.03 0.01 - 0.07 10*3/uL COMP. METABOLIC PANEL (33706) - Abnormal NA 139 135 - 145 mmol/L K 2.9 (*) 3.5 - 5.0 mmol/L CL 97 (*) 98 - 108 mmol/L CO2 TOTAL 32 (*) 23 - 31 mmol/L AGAP 10 2 - 16 BUN 9 7 - 23 mg/dL GLUCOSE 132 (*) 70 - 110 mg/dL CREATININE 0.67 0.50 - 1.04 mg/dL TOTAL BILI 0.4 0.1 - 1.1 mg/dL CALCIUM 9.3 8.6 - 10.6 mg/dL T PROTEIN 8.7 (*) 6.3 - 8.2 g/dL ALBUMIN 4.3 3.5 - 5.0 g/dL ALK PHOS 82 34 - 122 U/L ALTv 18 5 - 35 U/L AST(SGOT) 26 13 - 40 U/L eGFR 100.8 mL/min/1.73m2 D-DIMER - Abnormal D-DIMER 0.54 (*) <0.41 ?g/mL (FEU) URINALYSIS - Abnormal APPEARANCE Clear Clear COLOR Yellow Yellow PH 5.0 4.8 - 8.0 SP GRAVITY 1.023 1.003 - 1.030 GLU U QUAL Normal Normal BLOOD Negative Negative KETONES Negative Negative PROTEIN 30 mg/dL (*) Negative UROBILIN Normal Normal BILIRUBIN Negative Negative NITRITE Negative Negative LEUK TAMIE Negative Negative RBC/HPF 1 0 - 3 HPF WBC/HPF 1 0 - 5 HPF BACTERIA Few (*) Negative MUCOUS Slight (*) Negative LPF SQ EPITH 3 HPF TROPONIN I - Normal TROPONIN I 0.013 <=0.034 ng/mL POCT TEST - Normal POCT PREG Negative On board controls acceptable with C Line Yes POCT PREG LOT # [id number] POCT PREG TEST DATE 03-05-2024 MAGNESIUM - Normal MAGNESIUM 1.9 1.7 - 2.4 mg/dL A D-Dimer value less than 0. 50 ?g/ml (FEU) has a negative predicative value of 96 to 100% (95% CI)and 97 to 100% (95% CI) as an aid in the diagnosis of deep vein thrombosis (DVT) and pulmonary embolism when there is low or moderate pretest probabilit y of PE or DVT EKG: Sinus Rhythm with marked sinus arrhythmia , LVH, Rate 76 Orders and Treatments: Orders Placed This Encounter Procedures XR KNEE 3 VW LEFT XR SHOULDER 2+ VW LEFT CBC WITH DIFF COMP. METABOLIC PANEL (23754) TROPONIN I D-DIMER POCT TEST MAGNESIUM URINALYSIS Orders Placed This Encounter Medications NaCl 0.9% (NS) bolus infusion 1,000 mL ketorolac (TORADOL) injection 30 mg dexamethasone sod phos PF injection 10 mg KCL (KLOR-CON M20) tablet 40 mEq potassium chloride in water 10 mEq/100 mL RTU 1 0 mEq First Provider Eval: ED Events Date/Time Event User Comments 09/27/22 1206 Medical Screening Begins EVELIN STEEL MD -- 09/27/22 1206 First Provider Evaluation EVELIN BOWDEN MD -- ED COURSE Patient's condition improved with the treatment provided in the ED, will DC Home with adequate medications to treat her condition, and instructions to follow up with her PCP in 3 days to have her Potassium re-checked. Diagnosis/Impression as of 09/27/22 1439 Syncope and collapse Dehydration Hypokalemia Procedures: Procedures MDM: Medical Decision Making Patient's condition improved with the treatment provided in the ED, will DC Home with adequate medications to treat her condition, and instructions to follow up with her PCP in 3 days to have her Potassium re-checked. Problems Addressed: Dehydration: complicated acute illness or injury with systemic symptoms Hypokalemia: complicated acute illness or injury with systemic symptoms Syncope and collapse: complicated acute illness or injury Amount and/or Complexity of Data Reviewed Independent Historian: spouse Details: at bed side provided additiona l details about the incident Labs: ordered. Decision-making details documente d in ED Course. Radiology: ordered and indep endent interpretation performed. Decision-making details documented in ED Course. ECG/medicine tests: ordered and independent interpretation performed. Decision- making details documented in ED Course. Risk OTC drugs. Prescription drug management. Drug therapy requiring intensive monitoring for toxicity. Flowsheet Documentation: Scoring Tools: No data recorded Disposition/Condition: ED Disposition ED Disposition Disch - Home Condition Stable Comment -- Discharge Medications: Patient's Medications START taking these medications No medications on file CONTINUE taking these medications which have NOT CHANGED HYDROCHLOROTHIAZIDE 25 MG TABLET Take 1 tablet by mouth in the morning. START taking Modified Medications as Prescribed No medications on file STOP taking these medications No medications on file Follow-up: Electronically signed by: Evelin Steel MD 09/27/22 1441 Evelin Steel MD 09/27/22 1456
[2022-10-20 11:25] LABS: Urine Bacteria None Seen /HPF (<20); Urine Bilirubin NEGATIVE (Negative); Urine Blood Trace (Negative); Urine Clarity Turbid (Clear); Urine Color Colorless (Yellow); Urine Glucose NEGATIVE (Negative); Urine Mucus Slight /HPF (None Seen); Urine Protein NEGATIVE (Negative); Urine RBC <5 /HPF (None Seen); Urine Urobilinogen Normal (Normal); Urine pH 5.5 (5.0-7.0)
[2022-10-20 11:40] LABS: Absolute Lymphocytes (CBC) 1.5 K/uL (0.7-4.9); Hematocrit 37.7 % (36.0-45.0); Lymphocytes % 28.3 % (15.3-44.8); MCV 78.5 fL (80-100); MPV 9.9 fL (7.6-11.3); Platelets 207 thou/uL (152-406)
[2022-10-20] MEDS ORDERED: HALOPERIDOL LACT 5 MG/ML INJ ONE (11:45)
[2022-10-20] MEDS ORDERED: FAMOTIDINE 20 MG/2 ML VIAL IV ONE (11:45)
[2022-10-20] MEDS ORDERED: NA CHLORIDE 0.9% 1,000 ML ONE (11:46)
[2022-10-20] MEDS ORDERED: NA CHLORIDE 0.9% 50 ML ONE (11:46)
[2022-10-20 12:23] LABS: Albumin 3.4 g/dL (3.4-5.0); Bilirubin Total 0.3 mg/dL (0.2-1.0); Potassium 3.6 mEq/L (3.5-5.1); Protein, Total 8.2 g/dL (6.4-8.2)
--- NOTE | 2022-10-20 12:29 | ER ---
Nurse's Notes [facility] Name: Nasrin Borden Age: 32 yrs Sex: Female : 1990 Arrival Date: 10/20/2022 Time: 10:22 Bed 20 Private MD: Diagnosis: Upper abdominal pain, unspecified;Diarrhea, unspecified Presentation: 10/20 10:27 Chief complaint: Patient states: Nausea and diarrhea since Friday. Was on her way to [address], felt worse and decided to come to ED to get checked. Coronavirus screen: Vaccine status: Patient reports being unvaccinated. Ebola Screen: Patient denies travel to an Ebola-affected area in the 21 days before illness onset. Initial Sepsis Screen: Does the patient meet any 2 criteria? No. Patient's initial sepsis screen is negative. Does the patient have a suspected source of infection? No. Patient's initial sepsis screen is negative. Risk Assessment: Do you want to hurt yourself or someone else? Patient reports no desire to harm self or others. Onset of symptoms was October 15, 2022. 10:27 Method Of Arrival: Wheelchair [facility] 10:27 Acuity: CRYSTAL 3 [facility] Triage Assessment: 10:31 General: Appears in no apparent distress. uncomfortable, Behavior is calm, cooperative, [facility] appropriate for age. Pain: Complains of pain in abdomen Pain currently is 9 out of 10 on a pain scale. Neuro: Level of Consciousness is awake, alert, obeys commands, Oriented to person, place, time, situation. Cardiovascular: Patient's skin is warm and dry. Respiratory: Airway is patent Respiratory effort is even, unlabored. GI: Reports lower abdominal pain, upper abdominal pain, diarrhea, nausea. TRAPEZE ARTIST: 10:32 "I started spotting yesterday, should be coming anytime" [facility] Historical: - Allergies: 10:30 Zithromax; [facility] - Home Meds: 10:33 olmesartan oral daily [Active]; nj1 - PMHx: 10:30 Hypertensive disorder; [facility] - PSHx: 10:30 section; D\\T\\C; nj1 - Immunization history:: Client reports having NOT received the Covid vaccine. - Social history:: Smoking status: Patient denies any tobacco usage or history of. Screenin:32 [facility] ED Fall Risk Assessment (Adult) Score/Fall Risk Level 0 - 2 = Low Risk nj1 Oriented to surroundings, Maintained a safe environment, Hourly rounding (assess needs \\T\\ fall precautionary measures) done. Abuse screen: Denies threats or abuse. Denies injuries from another. Nutritional screening: No deficits noted. Tuberculosis screening: No symptoms or risk factors identified. Assessment: 11:14 General: Appears in no apparent distress. uncomfortable, Behavior is calm, cooperative, kc6 appropriate for age. Pain: Complains of pain in abdomen Pain does not radiate. Pain currently is 9 out of 10 on a pain scale. Neuro: Level of Consciousness is awake, alert, obeys commands, Oriented to person, place, time, situation, Appropriate for age. Cardiovascular: Capillary refill < 3 seconds. Respiratory: Airway is patent Trachea midline Respiratory effort is even, unlabored, Respiratory pattern is regular, symmetrical. GI: Abdomen is round non-distended, Bowel sounds present X 4 quads. Abd is soft X 4 quads Abdomen is tender to palpation X 4 quads. Reports diarrhea, nausea, Patient currently denies vomiting. : No signs and/or symptoms were reported regarding the genitourinary system. EENT: No signs and/or symptoms were reported regarding the EENT system. Derm: No signs and/or symptoms reported regarding the dermatologic system. Skin is intact, is healthy with good turgor, Skin is pink, warm \\T\\ dry. Musculoskeletal: No signs and/or symptoms reported regarding the musculoskeletal system. Circulation, motion, and sensation intact. Capillary refill < 3 seconds, Range of motion: intact in all extremities. 12:07 Reassessment: Patient appears in no apparent distress at this time. No changes from kc6 previously documented assessment. Patient and/or family updated on plan of care and expected duration. Pain level reassessed. Patient is alert, oriented x 3, equal unlabored respirations, skin warm/dry/pink. 12:41 Reassessment: d/c pending med f/u. kc6 Vital Signs: 10:27 BP 158 / 100; Pulse 68; Resp 18; Temp 99.3; Pulse Ox 100% ; Weight 96.16 kg; Height 5 nj1 ft. 0 in. ; Pain 9/10; 11:06 BP 168 / 96; Pulse 60; Resp 18 S; Pulse Ox 100% on R/A; Pain 9/10; kc6 12:17 BP 153 / 89; Pulse 71; Resp 18 S; Pulse Ox 100% on R/A; kc6 10:27 Body Mass Index 41.40 (96.16 kg, 152.4 cm) nj1 10:27 Pain Scale: Adult nj1 11:06 Pain Scale: Adult kc6 ED Course: 10:24 Patient arrived in ED. ts1 10:30 Triage completed. nj1 10:30 Arm band placed on right wrist. nj1 10:35 Gabbie Ashley FNP-C is PHCP. snw 10:35 Sarah Moody MD is Attending Physician. snw 11:03 Montserrat Scherer, GUSTAVO is Primary Nurse. kc6 11:04 Missed attempt(s): 22 gauge in right antecubital area. kc6 11:06 Patient has correct armband on for positive identification. Bed in low position. Call kc6 light in reach. Side rails up X 1. Adult w/ patient. 11:58 Inserted saline lock: 22 gauge in right antecubital area, using aseptic technique. kc6 Blood collected. 12:56 No provider procedures requiring assistance completed. IV discontinued, intact, kc6 bleeding controlled, No redness/swelling at site. Pressure dressing applied. Administered Medications: 12:56 Discontinued: NS 0.9% IV 1000 ml IV at 1 bolus Per protocol; 1000 mL bolus kc6 11:58 Drug: Haloperidol IVP 2.5 mg/50 mL 2.5 mg Route: IVP; Site: right antecubital; kc6 12:31 Follow up: Response: No adverse reaction kc6 11:58 Drug: NS 0.9% IV 1000 ml Route: IV; Rate: 1 bolus; Site: right antecubital; kc6 19:24 Follow up: Response: No adverse reaction; IV Status: Order to discontinue infusion kc6 11:58 Drug: Famotidine IVP 20 mg Route: IVP; Site: right antecubital; kc6 12:31 Follow up: Response: No adverse reaction kc6 12:41 Drug: Dicyclomine PO 20 mg Route: PO; kc6 12:56 Follow up: Response: No adverse reaction; Pain is decreased kc6 Medication: 12:56 VIS not applicable for this client. kc6 Outcome: 12:27 Discharge ordered by . snw 12:56 Discharged to home ambulatory, with family, with significant other. kc6 12:56 Condition: stable 12:56 Discharge instructions given to patient, Instructed on discharge instructions, follow up and referral plans. medication usage, Demonstrated understanding of instructions, follow-up care, medications, Prescriptions given X 2. 12:56 Patient left the ED. kc6 Signatures: Gabbie Ashley, HYDRO ELECTRIC STATION OPERATOR-C HYDRO ELECTRIC STATION OPERATOR-Csnw Montserrat Scherer RN RN kc6 Shivani Mckeon RN RN nj1 Alicja Dias PAS PAS ts1 Corrections: (The following items were deleted from the chart) 10:31 10:27 Pulse 68bpm; Resp 18bpm; Pulse Ox 100%; Temp 99.3F; 96.16 kg; Height 5 ft. 0 in.; nj1 BMI: 41.4; Pain 11/10, Adult; nj1 10:33 10:33 PSHx: DNC; nj1 nj1
--- NOTE | 2022-10-20 12:29 | EDPHYS ---
Physician Documentation [facility] Name: Nasrin Borden Age: 32 yrs Sex: Female : 1990 Arrival Date: 10/20/2022 Time: 10:22 Bed 20 Private MD: ED Physician Sarah Moody HPI: 10/20 11:48 This 32 yrs old Black Female presents to ER via Wheelchair with complaints of Nausea, snw Diarrhea. 11:48 The patient presents to the emergency department with nausea, vomiting, diarrhea. snw Associated signs and symptoms: Pertinent positives: abdominal pain, anorexia, diarrhea, nausea. as noted. 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 - Social history:: Smoking status: Patient denies any tobacco usage or history of. ROS: 11:48 Eyes: Negative for injury, pain, redness, and discharge, ENT: Negative for injury, snw pain, and discharge, Neck: Negative for injury, pain, and swelling, Cardiovascular: Negative for chest pain, palpitations, and edema, Respiratory: Negative for shortness of breath, cough, wheezing, and pleuritic chest pain, Back: Negative for injury and pain, : Negative for injury, bleeding, discharge, and swelling, MS/Extremity: Negative for injury and deformity, Skin: Negative for injury, rash, and discoloration, Neuro: Negative for headache, weakness, numbness, tingling, and seizure, Psych: Negative for depression, anxiety, suicide ideation, homicidal ideation, and hallucinations. 11:48 Constitutional: Positive for body aches, fatigue, malaise. 11:48 Abdomen/GI: Positive for abdominal pain, nausea, diarrhea, of the right upper quadrant and left upper quadrant. Exam: 11:48 Head/Face: Normocephalic, atraumatic. Eyes: Pupils equal round and reactive to light, snw extra-ocular motions intact. Lids and lashes normal. Conjunctiva and sclera are non-icteric and not injected. Cornea within normal limits. Periorbital areas with no swelling, redness, or edema. ENT: Nares patent. No nasal discharge, no septal abnormalities noted. Tympanic membranes are normal and external auditory canals are clear. Oropharynx with no redness, swelling, or masses, exudates, or evidence of obstruction, uvula midline. Mucous membranes moist. Neck: Trachea midline, no thyromegaly or masses palpated, and no cervical lymphadenopathy. Supple, full range of motion without nuchal rigidity, or vertebral point tenderness. No Meningismus. Chest/axilla: Normal chest wall appearance and motion. Nontender with no deformity. No lesions are appreciated. Cardiovascular: Regular rate and rhythm with a normal S1 and S2. No gallops, murmurs, or rubs. Normal PMI, no JVD. No pulse deficits. Respiratory: Lungs have equal breath sounds bilaterally, clear to auscultation and percussion. No rales, rhonchi or wheezes noted. No increased work of breathing, no retractions or nasal flaring. Back: No spinal tenderness. No costovertebral tenderness. Full range of motion. Skin: Warm, dry with normal turgor. Normal color with no rashes, no lesions, and no evidence of cellulitis. MS/ Extremity: Pulses equal, no cyanosis. Neurovascular intact. Full, normal range of motion. Neuro: Awake and alert, GCS 15, oriented to person, place, time, and situation. Cranial nerves II-XII grossly intact. Motor strength 5/5 in all extremities. Sensory grossly intact. Cerebellar exam normal. Normal gait. Psych: Awake, alert, with orientation to person, place and time. Behavior, mood, and affect are within normal limits. 11:48 Constitutional: The patient appears alert, awake, obese. 11:48 Abdomen/GI: Inspection: obese Bowel sounds: active, Palpation: moderate abdominal tenderness, in the right upper quadrant and left upper quadrant. Vital Signs: 10:27 BP 158 / 100; Pulse 68; Resp 18; Temp 99.3; Pulse Ox 100% ; Weight 96.16 kg; Height 5 nj1 ft. 0 in. ; Pain 9/10; 11:06 BP 168 / 96; Pulse 60; Resp 18 S; Pulse Ox 100% on R/A; Pain 9/10; kc6 12:17 BP 153 / 89; Pulse 71; Resp 18 S; Pulse Ox 100% on R/A; kc6 10:27 Body Mass Index 41.40 (96.16 kg, 152.4 cm) nj1 10:27 Pain Scale: Adult nj1 11:06 Pain Scale: Adult kc6 MDM: 10:42 Patient medically screened. snw 11:54 Differential diagnosis: Nonspecific abd pain, gastritis, cholecystitis, pancreatitis, snw viral gastroenteritis. Data reviewed: vital signs, nurses notes. I considered the following discharge prescriptions or medication management in the emergency department Medications were administered in the Emergency Department. See MAR. Counseling: I had a detailed discussion with the patient and/or guardian regarding the historical points, exam findings, and any diagnostic results supporting the discharge/admit diagnosis, the presence of at least one elevated blood pressure reading (>120/80) during this emergency department visit, lab results. 12:26 Response to treatment: the patient's symptoms have mildly improved after treatment. snw Special discussion: Based on the patient's Hx, exam, and Dx evaluation, there is no indication for emergent surgery or inpatient Tx. It is understood by the patient/guardian that if the Sx's persist or worsen they need to return immediately for re-evaluation. I have referred the patient to see his PCP for further evaluation of high blood pressure. Based on the history and exam findings, there is no indication for further emergent testing or inpatient evaluation. I discussed with the patient/guardian the need to see the cuff setter overlock for further evaluation of the symptoms. I discussed with the patient/guardian the need to see the primary care provider for further evaluation of the symptoms. 10/20 10:58 Order name: Urine W/Microscopic (UAM); Complete Time: 11:28 snw 10/20 10:58 Order name: PREGU; Complete Time: 11:28 snw 10/20 11:29 Order name: CBC with Diff; Complete Time: 11:45 snw 10/20 11:29 Order name: CMP; Complete Time: 12:26 snw 10/20 11:29 Order name: Lipase; Complete Time: 12:26 snw 10/20 11:29 Order name: IV Saline Lock; Complete Time: 11:58 snw 10/20 11:29 Order name: Labs collected and sent; Complete Time: 11:58 snw 10/20 11:48 Order name: Labs - recollect needed: Hemolyzed - Need GREEN TOP; Complete Time: 11:58 hb Administered Medications: 12:56 Discontinued: NS 0.9% IV 1000 ml IV at 1 bolus Per protocol; 1000 mL bolus kc6 11:58 Drug: Haloperidol IVP 2.5 mg/50 mL 2.5 mg Route: IVP; Site: right antecubital; kc6 12:31 Follow up: Response: No adverse reaction kc6 11:58 Drug: NS 0.9% IV 1000 ml Route: IV; Rate: 1 bolus; Site: right antecubital; kc6 19:24 Follow up: Response: No adverse reaction; IV Status: Order to discontinue infusion kc6 11:58 Drug: Famotidine IVP 20 mg Route: IVP; Site: right antecubital; kc6 12:31 Follow up: Response: No adverse reaction kc6 12:41 Drug: Dicyclomine PO 20 mg Route: PO; kc6 12:56 Follow up: Response: No adverse reaction; Pain is decreased kc6 Disposition Summary: 10/20/22 12:27 Discharge Ordered Location: Home snw Condition: Stable snw Diagnosis - Upper abdominal pain, unspecified snw - Diarrhea, unspecified snw Followup: snw - With: Emergency Department - When: As needed - Reason: Worsening of condition Followup: snw - With: Private Physician - When: 2 - 3 days - Reason: Recheck today's complaints, Continuance of care, Re-evaluation by your physician Discharge Instructions: - Discharge Summary Sheet snw - Abdominal Pain, Adult snw - Food Choices to Help Relieve Diarrhea, Adult snw - Diarrhea, Adult snw - Fat and Cholesterol Restricted Eating Plan snw - Rehydration, Adult snw Forms: - Work release form snw - Medication Reconciliation Form snw - Thank You Letter snw - Antibiotic Education snw - Prescription Opioid Use snw - Patient Portal Instructions snw - Leadership Thank You Letter snw Prescriptions: - Zofran 4 mg Oral Tablet - take 1 tablet by ORAL route every 12 hours As needed; 20 tablet; Refills: 0, snw Product Selection Permitted - dicyclomine 20 mg Oral Tablet - take 1 tablet by ORAL route 3 times per day; 21 tablet; Refills: 0, Product snw Selection Permitted Signatures: 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 [employer] EDMS Gabbie Ahsley, STAINED GLASS JOINER-C STAINED GLASS JOINER-Csnw Marla Moon, RN RN Montserrat Scherer, RN RN kc6 Shivani Mckeon RN RN nj1 Corrections: (The following items were deleted from the chart) 10:33 10:33 PSHx: DNC; nj1 nj1 11:52 11:48 Possible causes: antibiotics, uti, gastroenteritis snw snw 11:52 11:48 Associated signs and symptoms: Pertinent positives: abdominal pain, anorexia, snw diarrhea, nausea, vomiting, snw 11:52 11:48 seen at this facility 10/18/22 for similar s/s, pt unable to hold down fluids or snw antibiotics, snw 11:53 11:48 Eyes: Negative for injury, pain, redness, and discharge, ENT: Negative for snw injury, pain, and discharge, Neck: Negative for injury, pain, and swelling, Cardiovascular: Negative for chest pain, palpitations, and edema, Respiratory: Negative for shortness of breath, cough, wheezing, and pleuritic chest pain, Back: Negative for injury and pain, : Negative for injury, bleeding, discharge, and swelling, MS/Extremity: Negative for injury and deformity, Skin: Negative for injury, rash, and discoloration, Neuro: Negative for headache, weakness, numbness, tingling, and seizure, Psych: Negative for depression, anxiety, suicide ideation, homicidal ideation, and hallucinations, snw 11:53 11:48 Abdomen/GI: Positive for abdominal pain, nausea and vomiting, of the right upper snw quadrant and left upper quadrant, snw
[2022-10-20] MEDS ORDERED: DICYCLOMINE HCL 10 MG CAP ONE (12:49)
[2022-10-20 13:24] VITALS: TEMP 99.3; O2SAT 100
[2022-10-20 13:27] VITALS: BP 153/89
== END 2022-10-20 12:56 | disposition home or self-care (01) ==
LOC: ER 10:22
DX: R10.10 Upper abdominal pain, unspecified (principal); R19.7 Diarrhea, unspecified
CPT/HCPCS: 36415; 80053; 81001; 81025; 83690; 85025; 96361; 96374; 96375; 99284; J1630; J7030

== ENCOUNTER → 2023-04-17 | Emergency (ER) | payer SELFPAY ==
[~2023-04-17] MED LIST: DICYCLOMINE HCL 20 MG/2 ML AMP IM ONE; KETOROLAC 30 MG/ML INJ ONE; LOPERAMIDE HCL 2 MG CAPSULE ONE; METOCLOPRAMIDE 10 MG/2mL INJ ONE; NA CHLORIDE 0.9% 1,000 ML ONE; ONDANSETRON 4 MG/2 ML VIAL ONE
--- OUTSIDE RECORDS SUMMARY | 2023-04-17 19:44 | XMS REPORT | Continuity of Care Document ---
Author Name Unknown Address [address] [place] [address] [facility] thconnect Address 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 Role Phone TAMRA BERNARD Primary Care Physician Unav ailable JAMI_GCBZW_Kaboba_S Attending Clinician Evelin Calloway MD Attending Clinician [phone] EVELIN STEEL Attending Clinician Unavailable TAMRA BERNARD Attending Clinician Unavail able Marco Antonio Tamra BENSON Attending Clinician + Doctor Unassigned, El Veintiseis Attending Clinician U Jose Miguel Bishop DO Attending Clinician [phone] Suzanne Fernandez Attending Clinician + [phone] SUZANNE CONTRERAS Attending Clinician Kristen Castro Attending Clinician [phone] JAMI_GCBZW_Kadiyala_S Admitting Clinician EVELIN Calloway Admitting Clinician Unavailable Payers Payer Name Policy Type Policy Number Effective Date Expirati on Date Source [id number] 2018 00:00:00 Problems Condition Name Condition Details Condition Category Status Onset Date Resolution Date Last Treatment Date Treating Clinician Comments Source Other depression Other depression Disease Active 09-16 00:00: 00 [facility] Other general counseling and advice for contracept moo management Other general counseling and advice for contracept moo management Disease Active - 00:00: 00 [facility] Trichomona l vulvovagin itis Trichomona l vulvovagin itis Disease Active 06-01 00:00: 00 [facility] BMI 40.0-44.9, adult BMI 40.0-44.9, adult Disease Active 05-21 00:00: 00 [facility] Elevated blood pressure reading without diagnosis of hypertensi on Elevated blood pressure reading without diagnosis of hypertensi on Disease Active 05-21 00:00: 00 [facility] Positive depression screening Positive depression screening Disease Active 05-21 00:00: 00 [facility] Essential hypertensi on, benign Essential hypertensi on, benign Disease Active 05-21 00:00: 00 [facility] Family planning counseling Family planning counseling Disease Active 05-21 00:00: 00 [facility] Family history of diabetes mellitus Family history of diabetes mellitus Disease Active 05-21 00:00: 00 [facility] Morbid obesity Morbid obesity Disease Active 10-28 00:00: 00 [facility] Allergies, Adverse Reactions, Alerts Allergy Name Allergy Type Status Severity Reaction(s) Onset Date Inactive Date Treating Clinician Comments Source AZITHROM YCIN DRUG INGREDI Active Hallucinates 10-12 00:00: 00 [facility] Azithrom ycin Propensi ty to adverse reaction s Active Hallucinatio ns 10-12 00:00: 00 [facility] Social History Social Habit Start Date Stop Date Quantity Comments Source History of tobacco use Current smoker [facility] Gender identity [facility] Sexual orientation [facility] Exposure to SARS-CoV-2 (event) Not sure [facility] Alcohol intake 2022-09-27 00:00:00 2022-09-27 00:00:00 0 /d [facility] History of Social function 2022-09-16 00:00:00 2022-09-16 00:00:00 [facility] Tobacco use and exposure 2022-09-16 00:00:00 2022-09-16 00:00:00 Smokeless tobacco non-user [facility] Sex Assigned At 1990 00:00:00 1990 00:00:00 [facility] Smoking Status Start Date Stop Date Source Ex-smoker 2022-09-16 00:00:00 2022-09-16 00:00:00 [facility] Medications Ordered Medication Name Filled Medication Name Start Date Stop Date Current Medication? Ordering Clinician Indication Dosage Frequency Signature (SIG) Comments Components Source potassium chloride in water 10 mEq/100 mL RTU 10 mEq 09-27 20:00: 00 09-27 21:59 :00 No 10meq 10 mEq, IV Piggyback, Q1H, 2 doses, First dose on Fri09/27/22 at 1500, Last dose on Fri09/27/22 at 1600, Administer over 60 Minutes, 100 mL [facility] KCL (KLOR-CON M20) tablet 40 mEq 09-27 19:15: 00 09-27 19:34 :00 No 40meq 40 mEq, Oral, ONCE, 1 dose, On Fri09/27/22 at 1415, CATARINO [facility] ketorolac (TORADOL) injection 30 mg 09-27 18:15: 00 09-27 18:21 :00 No 30mg 30 mg, Slow IV Push, ONCE NOW, 1 dose, On Fri09/27/22 at 1315, CATARINO [facility] NaCl 0.9% (NS) bolus infusion 1,000 mL 09-27 18:15: 00 09-27 21:59 :00 No 1000mL at 999 mL/hr, 1,000 mL, IV Piggyback, ONCE, 1 dose, On Fri09/27/22 at 1315, STAT [facility] dexamethaso ne sod phos PF injection 10 mg 09-27 17:30: 00 09-27 18:23 :00 No 10mg 10 mg, Slow IV Push, ONCE, 1 dose, On Fri09/27/22 at 1230, 1 mL [facility] KCL 20 mEq tablet 09-27 00:00: 00 Yes [id number] 20meq Take 1 tablet by mouth in the morning. [facility] Oral Electrolyte s (PEDIALYTE ADVANCED CARE) solution 09-27 00:00: 00 Yes [id number] 500mL Take 500 mL by mouth every 6 (six) hours. [facility] hydroCHLORO thiazide 25 mg tablet 09-16 00:00: 00 Yes [id number] 25mg Take 1 tablet by mouth in the morning. [facility] hydroCHLORO thiazide 25 mg tablet 09-16 00:00: 00 Yes [id number] 25mg Take 1 tablet by mouth in the morning. [facility] hydroCHLORO thiazide 25 mg tablet 09-16 00:00: 00 Yes [id number] 25mg Take 1 tablet by mouth in the morning. [facility] hydroCHLORO thiazide 25 mg tablet 09-16 00:00: 00 Yes [id number] 25mg Take 1 tablet by mouth in the morning. [facility] No known medications - 09:08: 28 No [facility] Vital Signs Vital Name Observation Time Observation Value Comments S glen Systolic blood pressure 2022-09-27 21:00:00 126 mm[Hg] [facility] Diastolic blood pressure 2022-09-27 21:00:00 73 mm[Hg] [facility] Heart rate 2022-09-27 21:00:00 68 /[facility] Respiratory rate 2022-09-27 21:00:00 19 /min [facility] Oxygen saturation in Arterial blood by Pulse oximetry 2022-09-27 21:00:00 96 /min [facility] Body height 2022-09-27 16:37:00 152.4 cm [facility] Body weight 2022-09-27 16:37:00 96.163 kg [facility] BMI 2022-09-27 16:37:00 41.40 kg/m2 [facility] Body temperature 2022-09-27 16:37:00 37.22 Shantelle [facility] Systolic blood pressure 2022-09-16 14:28:00 160 mm[Hg] [facility] Diastolic blood pressure 2022-09-16 14:28:00 65 mm[Hg] [place] [facility] Heart rate 2022-09-16 14:21:00 61 /min [facility] Body temperature 2022-09-16 14:20:00 36.06 Shantelle [facility] Respiratory rate 2022-09-16 14:20:00 18 /min [facility] Body height 2022-09-16 14:20:[address] [facility] Body weight 2022-09-16 14:20:[address] [facility] BMI 2022-09-16 14:20:00 42.09 kg/m2 [facility] Diastolic blood pressure 2021-03-21 15:03:00 90 mm[Hg] [facility] Systolic blood pressure 2021-03-21 15:03:00 140 mm[Hg] [facility] Heart rate 2021-03-21 14:47:00 62 /min [facility] Body temperature 2021-03-21 14:47:00 35.89 Shantelle [facility] Respiratory rate 2021-03-21 14:47:00 16 /min [facility] Body height 2021-03-21 14:47:[address] [facility] Body weight 2021-03-21 14:47:[address] [facility] BMI 2021-03-21 14:47:00 43.66 kg/m2 [facility] Procedures Procedure Date / Time Performed Performing Clinicia n Source HB ECG ROUTINE & RHYTHM STRIP 2022-09-27 19:48:39 Evelin Steel [facility] POCT TEST 2022-09-27 18:21:00 Clara Steel [facility] MAGNESIUM 2022-09-27 18:20[facility] 2022-09-27 18:20:00 Elo [facility] COMP. METABOLIC PANEL (73071) 2022-09-27 18:20:00 Evelin Steel [facility] CBC WITH DIFF 2022-09-27 18:20:[address] [facility] D-DIMER 2022-09-27 18:20:[address] [facility] URINALYSIS 2022-09-27 18:20:00 [facility] VW LEFT 2022-09-27 18:04:48 Evelin Steel [facility] XR SHOULDER 2+ VW LEFT 2022-09-27 18:04:48 Juli Steel [facility] ASSIGNMENT OF BENEFITS 2022-09-16 14:05:36 Docto r Unassigned, El Veintiseis [facility] POCT TEST 2021-03-21 15:21:00 Gonzalo Bernard [facility] Encounters Start Date/Time End Date/Time Encounter Type Admission Type Attending [facility] Care Facility Care Department Encounter ID Source 2023-03-28 16:54:58 2023-03-28 16:54:58 Outpatient SFA SFA [id number] Basim Cardoza 2023-03-27 15:36:06 2023-03-27 15:36:06 Outpatient SFA SFA 5 Basim Cardoza 2023-01-01 00:00:00 2023-01-01 00:00:00 Outpatient GC_GCBZW_Ka dialtagraciaa_S [facility] [id number] [facility] 2022-09-27 11:38:00 2022-09-27 17:01:00 Emergency Evelin Steel [facility] 1..840.114 350.1.13.10 4.2.7.2.686 [id number] [facility] 2022-09-27 11:38:00 2022-09-27 17:01:00 Emergency X EVELIN STEEL [facility] ERT [id number] [facility] 2022-09-17 09:45:00 2022-09-17 09:45:00 Outpatient R TAMRA BERNARD [facility] [id number] [facility] 2022-09-16 09:45:00 2022-09-16 10:21:14 Outpatient R TAMRA BERNARD 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 [id number] [facility] 2021-03-21 09:00:00 2021-03-21 09:25:56 Office Visit Tamra Bernard [facility] SILVERWARE BUFFING MACHINE OPERATOR [facility] 1..840.114 350.1.13.10 4.2.7.2.686 [id number] [facility] 2021-03-21 09:00:00 2021-03-21 09:00:00 Outpatient R TAMRA BERNARD [facility] [id number] [facility] 2020-05-23 00:00:00 2020-05-23 00:00:00 Patient Outreach LudwigJose Miguel [facility] 1.2.840.114 350.1.13.10 4.2.7.2.686 [id number] [facility] 2019-07-05 10:19:00 2019-07-05 10:54:18 Office Visit Suzanne Contreras [facility] SILVERWARE BUFFING MACHINE OPERATOR [facility] 1.2.840.114 350.1.13.10 4.2.7.2.686 [id number] [facility] 2019-07-05 10:19:00 2019-07-05 10:54:18 Office Visit Suzanne Contreras [facility] SILVERWARE BUFFING MACHINE OPERATOR [facility] 1.2.840.114 350.1.13.10 4.2.7.2.686 [id number] 2019-07-05 10:30:00 2019-07-05 10:30:00 Outpatient R SUZANNE CONTRERAS [facility] [id number] [facility] 2019-07-05 00:00:00 2019-07-05 00:00:00 Orders Only Doctor Unassigned, El Veintiseis [facility] 1.284.114 350.1.13.10 4.2.7.2.686 [id number] [facility] 2019-04-16 08:24:03 2019-04-16 08:56:28 Office Visit Kristen Mcintyre [facility] SILVERWARE BUFFING MACHINE OPERATOR [facility] 1.2.840.114 350.1.13.10 4.2.7.2.686 [id number] [facility] 2019-04-16 00:00:00 2019-04-16 00:00:00 Orders Only Doctor Unassigned, El Veintiseis [facility] 1.2.840.114 350.1.13.10 4.2.7.2.686 [id number] [facility] Results Test Description Test Time Test Comments Results Result Co mments Source [facility]23217[facility]2022-09-27 19:02:48* Test Item Value Reference Range Interpretation Comme nts NA (test code = 0667599837) 139 mmol/L 135-145 K (test code = 1676513864) 2.9 mmol/L 3.5-5.0 LL CL (test code = 9880483789) 97 mmol/L 98-108 L CO2 TOTAL (test code = 7893678363) 32 mmol/L 23-31 H AGAP (test code = 7430269824) 10 2-16 BUN (test code = 7497308573) 9 mg/dL 7-23 GLUCOSE (test code = 4847459564) 132 mg/dL 70-110 H CREATININE (test code = 5571877307) 0.67 mg/dL 0.50-1.04 TOTAL BILI (test code = 6598256445) 0.4 mg/dL 0.1-1.1 CALCIUM (test code = 9942539660) 9.3 mg/dL 8.6-10.6 T PROTEIN (test code = 0086583324) 8.7 g/dL 6.3-8.2 H ALBUMIN (test code = 0633462568) 4.3 g/dL 3.5-5.0 ALK PHOS (test code = 4008239746) 82 U/L 34-122 ALTv (test code = 1742-6) 18 U/L 5-35 AST(SGOT) (test code = 4397111441) 26 U/L 13-40 eGFR (test code = 0574907727) 100.8 mL/min/1.73m2 BILL (test code = BILL) Association of [...] or abnormalities in imaging tests). Lab Interpretation (test code = 37026-6) [facility]normal [facility]28 19:00:34* Test Item Value Reference Range Interpretation Comme nts MAGNESIUM (test code = 3943527324) 1.9 mg/dL 1.7-2.4 Lab Interpretation (test cod e = 58567-6) Normal [facility]-[id number] 18:56:37* Test Item Value Reference Range Interpretation Comments D-DIMER (test code = 0567629916) 0.54 See_Comment H [Automated message] The system which generated this result transmitted reference range: <0.41 ?g/mL (FEU). The reference range was not used to interpret this result as normal/abnormal. BILL (test code = BILL) This test may be used in conjunction with a clinical pretest [...] context, in forming a diagnosis. Lab Interpretation (test code = 22060-5) Abnormal [facility] WITH [id number] 18:49:15* Test Item Value Reference Range Interpretation Comme nts WBC (test code = 6690-2) 6.48 See_Comment [Automated Deeplinka ge] The system which generated this result transmitted reference range: 4.30 - 11.10 10*3/?L. The reference range was not used to interpret this result as normal/abnormal. RBC (test code = 789-8) 4.88 See_Comment [Automated Deeplinka ge] The system which generated this result transmitted reference range: 3.93 - 5.25 10*6/?L. The reference range was not used to interpret this result as normal/abnormal. HGB (test code = 718-7) 12.2 g/dL 11.6-15.0 HCT (test code = 4544-3) 38.2 % 35.7-45.2 MCV (test code = 787-2) 78.3 fL 80.6-95.5 L MCH (test code = 785-6) 25.0 pg 25.9-32.8 L MCHC (test code = 786-4) 31.9 g/dL 31.6-35.1 RDW-SD (test code = 59605-3) 44.1 fL 39.0-49.9 RDW-CV (test code = 788-0) 15.5 % 12.0-15.5 PLT (test code = 777-3) 321 See_Comment [Automated Deeplinka ge] The system which generated this result transmitted reference range: 166 - 358 10*3/?L. The reference range was not used to interpret this result as normal/abnormal. MPV (test code = 69484-3) 12.4 fL 9.5-12.9 NRBC/100 WBC (test code = 6641391190) 0.0 See_Comment [Automated Lekiosque.fr ssage] The system which generated this result transmitted reference range: 0.0 - 10.0 /100 WBCs. The reference range was not used to interpret this result as normal/abnormal. NRBC x10^3 (test code = 3812486189) See_Comment [Automated messa ge] The system which generated this result transmitted reference range: 10*3/?L. The reference range was not used to interpret this result as normal/abnormal. GRAN MAT (NEUT) % (test code = 770-8) 64.5 % IMM GRAN % (test code = 6277062640) 0.00 % LYMPH % (test code = 736-9) 27.3 % MONO % (test code = 5905-5) 6.8 % EOS % (test code = 713-8) 0.9 % BASO % (test code = 706-2) 0.5 % GRAN MAT x10^3(ANC) (test code = 2876371589) 4.18 10*3/uL 1.88-7.09 IMM GRAN x10^3 (test code = 3597717918) 0.00-0.06 LYMPH x10^3 (test code = 731-0) 1.77 10*3/uL 1.32-3.29 MONO x10^3 (test code = 742-7) 0.44 10*3/uL 0.33-0.92 EOS x10^3 (test code = 711-2) 0.06 10*3/uL 0.03-0.39 BASO x10^3 (test code = 704-7) 0.03 10*3/uL 0.01-0.07 Lab Interpretation (test code = 59299-3) [facility] [id number] 18:21:00* Test Item Value Reference Range Interpretation Comme nts POCT PREG (test code = 1605) Negative On board controls acceptable with C Line (test code = 3574) Yes POCT PREG LOT # (test code = 3577) [id number] POCT PREG TEST DATE ( test code = 3576) 03-05-2024 Lab Interpretation (test cod e = 00694-1) Normal [facility]and[facility]IP[facility] [id number] 04:03:03* Test Item Value Reference Range Interpretation Comme nts CHOLESTEROL (test code = 2210) 161 MG/DL <200 TRIGLYCERIDES (test code = 2232) 67 MG/DL <150 HDL CHOLESTEROL (test code = 0) 56 MG/DL >39 CALC LDL CHOL (test code = 2236) 90 MG/DL <100 NOTE: CALCULATED LDL IS BASED ON KEVIN-BOYD METHOD WHICHINCLUDES ADJUSTABLE TRIGLYCERIDE:VLDL CHOLESTEROL RATIO.THIS FACTOR VARIES BY MEASURED TRIGLYCERIDE AND NON-HDLCHOLESTEROL CONCENTRATIONS WITH INCREASED CALCULATED LDL SEENIN HIGHER TRIGLYCERIDE OR LOWER NON-HDL SPECIMENS. FOR MOREINFORMATION, SEE CLIENT ANNOUNCEMENT AT [email or web address] RISK RATIO LDL/HDL (test code = 2237) 1.61 RATIO <3.22 COMPREHENSIVE METABOLIC [id number] 04:03:03* Test Item Value Reference Range Interpretation Comme nts GLUCOSE (test code = 2216) 100 MG/DL 70-99 H BUN (test code = 2207) 5 MG/DL 6-20 L CREATININE (test code = 2213) 0.77 MG/DL 0.60-1.30 eGFR (2020 CKD-EPI) (test code = ) 104 ML/MIN/1.73 >60 CALC BUN/CREAT (test code = 223) 6 RATIO 6-28 SODIUM (test code = 2230) 137 MEQ/L 133-146 POTASSIUM (test code = 2227) 3.8 MEQ/L 3.5-5.4 CHLORIDE (test code = 2215) 100 MEQ/L 95-107 CARBON DIOXIDE (test code = 6) 28 MEQ/L 19-31 CALCIUM (test code = 2208) 9.4 MG/DL 8.5-10.5 PROTEIN, TOTAL (test code = 2228) 7.8 G/DL 6.1-8.3 ALBUMIN (test code = 2200) 4.3 G/DL 3.5-5.2 CALC GLOBULIN (test code = 2240) 3.5 G/DL 1.9-3.7 CALC A/G RATIO (test code = 2233) 1.2 RATIO 1.0-2.6 BILIRUBIN, TOTAL (test code = 2206) 0.3 MG/DL See_Comment [Automated me ssage] The system which generated this result transmitted reference range: <=1.2. The reference range was not used to interpret this result as normal/abnormal. ALKALINE PHOSPHATASE (test code = 2204) 71 U/L 40-114 AST (test code = 2218) 14 U/L 9-40 ALT (test code = 2219) 12 U/L 5-40 UNLESS OTHERWISE INDICATED, ALL TESTING PERFORMED [facility] SERVICESVeot[facility] PATHOLOG[facility] [employer] [address] [place] [address] SERVOMECHANISM DESIGNER: KOTA ORTEGA M.D. CLIA NUMBER [id number] [facility] [place]. [id number] POCT [id number] 15:21:00* Test Item Value Reference Range Interpretation Comme nts POCT PREG (test code = 1605) Negative On board controls acceptable with C Line (test code = 3574) Yes POCT PREG LOT # (test code = 3575) POCT PREG TEST DATE ( test code = 3576) [facility] Notes Date/Time Note Provider Source 2022-09-27 17:00:05 kNttTwOtNa9Ixr0iT2Nf +W4G8FJ6lnvr tvxPTOMntS4mLE3mdiz/8GZAH1VzEOXN 2076-71-11F21:00:05 Pt discharged with diagnosis of syncope and collapse, dehydration, and hypokalemia. Printed and verbal instructions reviewed with and given to patient. Prescriptions given x 2. Pt verbalized understanding of teaching, medications, and recommended follow-up. Denies questions or concerns at this time. Pt assisted to waiting room at discharge via wheelchair by ED RN. Appears in no apparent distress. Waiting for family member to arrive to transport home. 71330-6Jbprshupg department OddbOQ3178-42-55U36:01:07[facility] NoteTXT1.2.840.494180.1.13.104.2 .7.2.211475|[id number] e for patient [id number] N Dewoody RN[address] QwpkSsfzgfjdaZsbstedxyWDEB315650 3440SISQVKQSLXRIMHPWMVFOQW5937-3 7-28T17:01:071.2.840.204078.1.72 .3.15|1.2.840.492293.1.13.104.2. 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 Complaining of left knee pain. Stryker nauseous, ems gave 4mg zofran. No LOC. [address]375-4Pftyjufhr department Triage pbypDZ7236-31-74Y10:36:57Emergen department Triage noteTXT1.2.840.395396.1.13.104.2 .7.2.017706|[id number] e for patient [id number] Fief RN[address] XswxFubkmnshsInybsxsmoTHCA479201 9944GQEVKEFJPQVKUPJIIUSAMM0048-0 7-28T11:36:571.2.840.272792.1.72 .3.15|1.2.840.046596.1.13.104.2. 7.2.727879_[id number] Debby De La Garza RN [facility] 2022-09-27 11:33:00 2pBqZLEOky4Bk74kMqP5 WBrAo6UgVvDo AWKipdRu8FAXJ5rKWtvXstUbcoQBcjhN 3260-56-01F37:33:00 [facility] Emergency Department NotePatient Name: Nasrin Goode of : 1990 32 year old femaleTreatment Room: [place] [address]/EENMRG96Tzxchop Record Number: [id number] Care Physician: Tamra BernardPatient Escorted by: Self [9]Mode of Arrival: EMS - [facility] ([place]) [43]EMS Treatment Prior to ED Arrival:SILK TRIMMER treatment: Saline lock;supplier engineer;Medication (comment) SILK TRIMMER treatment comments: "something for nausea"Travel and Exposure Screening:SymptomsDoes patient have any of these symptoms?: (not recorded)Exposure ScreeningHas patient had contact with someone with a communicable disease in the last month?: (not recorded)Diseases exposed to:: (not recorded)Is Patient ?: (not recorded)Exposure Date: (not recorded)Chief Complaint:Chief Complaint Patient presents with Fall Dizziness History of Present Illness: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 Complaining of left knee pain. Stryker nauseous, ems gave 4mg zofran. No LOCHistory provided by: Patient and spouseLanguage shuttle bus driver used: No SyncopeEpisode history: SingleMost recent episode: TodayDuration: 2 minutesProgression: Partially resolvedChronicity: NewContext comment: Patient was at her work porch, and sudeenly became dizzy, lightheaded and fell onto the floorWitnessed: yes Relieved by: Lying downWorsened by: NothingIneffective treatments: None triedAssociated symptoms: diaphoresis, dizziness, nausea and weakness Associated symptoms: no anxiety, no chest pain, no confusion, no fever, no focal weakness, no headaches, no palpitations, no seizures, no shortness of breath and no vomiting Associated symptoms comment: Feeling lightheadedPast Medical History/Immunizations:Past Medical History: Diagnosis Date Anemia in the past Anxiety ongoing, not currently taking medication. Breast disorder 2014 was told she had excess breast tissue Chlamydia 2006 Depression ongoing, not currently taking medication Family history of diabetes mellitus 05/21/2018 Hypertension 01/2022 not on medication- was seen at [facility] and given 2 months medication Substance abuse in the past, marijuana last used 2006 Trauma Trichomonal vulvovaginitis 06/01/2018 Tetanus received in last 5 years: Unknown Allergies:Allergies Allergen Reactions Zithromax [Azithromycin] Hallucinations Past Social History:Tobacco Use Former Smokeless Tobacco: Never used smokeless tobacco. Alcohol Use Not Currently; 0.0 standard drinks of alcohol per week; 0 Standard drinks or equivalent. Drug Use Not Currently; Hydrocodone. Comments: 1/2 a 10 mg daily as needed Sexual Activity Sexually active; Partners: Male; Control/Protection: None. Comments: last sexual intercourse 08/2022 Past Surgical History:Past Surgical History: Procedure Laterality Date SECTION 2013 DILATION AND CURETTAGE (SHX) 2006 Review of Systems: Review of Systems Constitutional: Positive for diaphoresis. Negative for activity change, appetite change, fatigue, fever and unexpected weight change. HENT: Negative for congestion, ear pain, mouth sores, nosebleeds, rhinorrhea, sinus pressure, sore throat and voice change. Eyes: Negative for pain, discharge, redness, itching and visual disturbance. Respiratory: Negative for cough, choking, chest tightness, shortness of breath, wheezing and stridor. Cardiovascular: Positive for syncope. Negative for chest pain, palpitations and leg swelling. Gastrointestinal: Positive for nausea. Negative for abdominal distention, abdominal pain, blood in stool, constipation, diarrhea and vomiting. Genitourinary: Negative for dysuria, urgency, polyuria, frequency, hematuria, flank pain, decreased urine volume, difficulty urinating and genital sores. Musculoskeletal: Negative for arthralgias, back pain, gait problem, joint swelling, myalgias, neck pain and neck stiffness. Skin: Negative for color change, pallor, rash and wound. Neurological: Positive for dizziness and weakness. Negative for tremors, focal weakness, seizures, syncope, speech difficulty and headaches. Psychiatric/Behavioral: Negative for agitation, confusion, dysphoric mood, hallucinations, self-injury and suicidal ideas. The patient is not nervous/anxious. All other systems reviewed and are negative.Hematological: Negative for adenopathy, cold intolerance and heat [...] 95 % Measured on Room air Physical ExamVitals and nursing note reviewed. Constitutional: General: She is awake. She is not in acute distress. Appearance: She is well-developed, well-groomed and overweight. She is ill-appearing and diaphoretic. She is not toxic-appearing. HENT: Head: Normocephalic and atraumatic. Right Ear: External ear normal. Left Ear: External ear normal. Nose: Nose normal. Mouth/Throat: Pharynx: No oropharyngeal exudate. Eyes: General: No scleral icterus. Right eye: No discharge. Left eye: No discharge. Conjunctiva/sclera: Conjunctivae normal. Pupils: Pupils are equal, round, and reactive to light. Neck: Thyroid: No thyromegaly. Vascular: No JVD. Trachea: No tracheal deviation. Cardiovascular: Rate and Rhythm: Normal rate and regular rhythm. Heart sounds: Normal heart sounds. No murmur heard. No friction rub. No gallop. Pulmonary: Effort: Pulmonary effort is normal. No respiratory distress. Breath sounds: Normal breath sounds. No stridor. No wheezing or rales. Chest: Chest wall: No tenderness. Abdominal: General: Bowel sounds are normal. There is no distension. Palpations: Abdomen is soft. There is no mass. Tenderness: There is no abdominal tenderness. There is no guarding or rebound. Musculoskeletal: General: No deformity. Right shoulder: Normal. Left shoulder: Tenderness present. No bony tenderness or crepitus. Decreased range of motion. Cervical back: Normal range of motion and neck supple. Left knee: No swelling, deformity, effusion or erythema. Decreased range of motion. Tenderness present over the lateral joint line. Lymphadenopathy: Cervical: No cervical adenopathy. Skin: General: Skin is warm. Coloration: Skin is not pale. Findings: No erythema or rash. Neurological: Mental Status: She is alert and oriented to person, place, and time. Cranial Nerves: No cranial nerve deficit. Motor: No abnormal muscle tone. Coordination: Coordination normal. Deep Tendon Reflexes: Reflexes are normal and symmetric. Reflexes normal. Psychiatric: Behavior: Behavior normal. Behavior is cooperative. Thought Content: Thought content normal. Judgment: Judgment normal. Radiology:XR KNEE 3 VW LEFT Final Result EXAM: XR KNEE 3 VW LEFT HISTORY: 32 years-old Female; syncope, fall, pain . COMPARISON: None FINDINGS: Radiographs of the left knee were obtained. No acute fracture or traumatic dislocation is visualized. The alignment is maintained. Mild soft tissue swelling is noted. The joint spaces are preserved. IMPRESSION No acute osseous abnormality. Preliminary Report Dictated by Resident: Erin Farah MD., have reviewed this study and agree with the above report. XR SHOULDER 2+ VW LEFT Final Result EXAM: XR SHOULDER 2+ VW LEFT HISTORY: 32 years-old Female; syncope, fall, pain . COMPARISON: None FINDINGS: Radiographs of the left shoulder were obtained. No acute fracture or traumatic dislocation is visualized. The alignment is maintained. Mild soft tissue swelling is present about the shoulder. The joint spaces are preserved. IMPRESSION No acute osseous abnormality. Preliminary Report Dictated by Resident: Erin Farah MD., have reviewed this study and agree with the above report. Lab Results:Lab Results CBC WITH DIFF - Abnormal Result [...] 0.01 - 0.07 10*3/uL COMP. METABOLIC PANEL (04856) - Abnormal NA 139 135 - 145 [...] 2.4 mg/dL A D-Dimer value less than 0.50 ?g/ml (FEU) has a negative predicative value of 96 to 100% (95% CI)and 97 to 100% (95% CI) as an aid in the diagnosis of deep vein thrombosis (DVT) and pulmonary embolism when there is low or moderate pretest probability of PE or DVTEKG:Sinus Rhythm with marked sinus arrhythmia , LVH, Rate 76Orders and Treatments:Orders Placed This Encounter Procedures XR KNEE 3 VW LEFT XR SHOULDER 2+ VW LEFT CBC WITH DIFF COMP. METABOLIC PANEL (90222) TROPONIN I D-DIMER POCT TEST MAGNESIUM URINALYSIS Orders Placed This Encounter Medications NaCl 0.9% (NS) bolus infusion 1,000 mL ketorolac (TORADOL) injection 30 mg dexamethasone sod phos PF injection 10 mg KCL (KLOR-CON M20) tablet 40 mEq potassium chloride in water 10 mEq/100 mL RTU 10 mEq First Provider Eval:ED Events Date/Time Event User Comments 09/27/221205 Medical Screening Begins EVELIN STEEL MD -- 09/27/221205 First Provider Evaluation EVELIN STEEL MD -- ED COURSEPatient's condition improved with the treatment provided in the ED, will DC Home with adequate medications to treat her condition, and instructions to follow up with her PCP in 3 days to have her Potassium re-checked.Diagnosis/Impression as of 09/27/22 1439 Syncope and collapse Dehydration Hypokalemia Procedures: ProceduresMDM:Medical Decision MakingPatient's condition improved with the treatment provided in the ED, will DC Home with adequate medications to treat her condition, and instructions to follow up with her PCP in 3 days to have her Potassium re-checked.Problems Addressed:Dehydration: complicated acute illness or injury with systemic symptomsHypokalemia: complicated acute illness or injury with systemic symptomsSyncope and collapse: complicated acute illness or injuryAmount and/or Complexity of Data ReviewedIndependent Historian: spouse Details: at bed side provided additional details about the incidentLabs: ordered. Decision-making details documented in ED Course.Radiology: ordered and independent interpretation performed. Decision-making details documented in ED Course.ECG/medicine tests: ordered and independent interpretation performed. Decision-making details documented in ED Course.RiskOTC drugs.Prescription drug management.Drug therapy requiring intensive monitoring for toxicity. Flowsheet Documentation: Scoring Tools: No data recorded Disposition/Condition:ED Disposition ED Disposition Disch - Home Condition Stable Comment -- Discharge Medications:Patient's Medications START taking these medications No medications on file CONTINUE taking these medications which have NOT CHANGED HYDROCHLOROTHIAZIDE 25 MG TABLET Take 1 tablet by mouth in the morning. START taking Modified Medications as Prescribed No medications on file STOP taking these medications No medications on file Follow-up:Electronically signed by: Evelin Steel MD09/27/22 1441 Evelin Steel MD09/27/22 1456 [id number] Emergency department [id number] an Emergency department [id number] e for patient care[address] E[id number]:[id number] [facility]
[2023-04-17 20:20] LABS: Absolute Lymphocytes (CBC) 1.4 K/uL (0.7-4.9); Hematocrit 37.3 % (36.0-45.0); Lymphocytes % 17.1 % (15.3-44.8); MCV 79.6 fL (80-100); MPV 9.5 fL (7.6-11.3); Platelets 287 thou/uL (152-406); RBC Red Blood Cell Count 4.68 M/uL (3.86-4.86)
[2023-04-17 20:34] LABS: Albumin 3.8 g/dL (3.4-5.0); Bilirubin Total 0.3 mg/dL (0.2-1.0); Potassium 3.5 mEq/L (3.5-5.1); Protein, Total 8.7 g/dL (6.4-8.2)
[2023-04-17 20:55] LABS: Specific Gravity 1.016 (1.005-1.030); Urine Bacteria None Seen /HPF (<20); Urine Bilirubin NEGATIVE (Negative); Urine Blood Negative (Negative); Urine Clarity Clear (Clear); Urine Color Colorless (Yellow); Urine Glucose NEGATIVE (Negative); Urine Mucus Slight /HPF (None Seen); Urine Protein TRACE (Negative); Urine RBC <5 /HPF (None Seen); Urine Urobilinogen Normal (Normal)
[2023-04-17 20:56] LABS: Specific Gravity 1.016 (1.005-1.030)
--- NOTE | 2023-04-17 21:52 | RAD REPORT ---
EXAM DESCRIPTION: CTAbdomen Pelvis W Contrast - 04/17/2023 9:45 pm CLINICAL HISTORY: Abdominal pain. ABD PAIN COMPARISON: Abdomen Pelvis W Contrast dated 08/11/2021 TECHNIQUE: Biphasic CT imaging of the abdomen and pelvis was performed with 100 ml non-ionic IV cont rast. All CT scans are performed using dose optimization technique as appropriate and may include automated exposure control or mA/KV adjustment according to patient size. FINDINGS: The lung bases are clear. The liver, spleen, pancreas, adrenal glands and kidneys are within normal limits. No bowel obstruction, free air, free fluid or abscess. Several mildly dilated and enhancing small bow el loops are present. The appendix is normal. No evidence of significant lymphadenopathy. No suspicious bony findings. IMPRESSION: Mildly dilated and enhancing small bowel loops in the central abdomen. This may indicate a nonspecific enteritis.
--- NOTE | 2023-04-17 21:57 | ER ---
Nurse's Notes [facility] Name: Nasrin Borden Age: 33 yrs Sex: Female : 1990 Arrival Date: 04/17/2023 Time: 19:41 Bed 19 Private MD: Diagnosis: Other viral enteritis Presentation: 04/17 19:42 Chief complaint: EMS states: toned out for abdominal pain. Patient ate Burger shil[employer] me1 about noon and by 1 pm was having nausea, diffuse abdominal pain that is cramping in nature and diarrhea. 20g RAC established and zofran 4 mg IV administered with some relief. Coronavirus screen: Vaccine status: Patient reports being unvaccinated. Ebola Screen: No symptoms or risks identified at this time. Initial Sepsis Screen: Does the patient meet any 2 criteria? HR > 90 bpm. Does the patient have a suspected source of infection? Yes: Acute abdominal pain. Risk Assessment: Do you want to hurt yourself or someone else? Patient reports no desire to harm self or others. Onset of symptoms was April 17, 2023 at 13:00. 19:42 Method Of Arrival: EMS: [facility] ca1 19:42 Acuity: CRYSTAL 3 me1 Triage Assessment: 19:44 General: Appears uncomfortable, ill, obese, well groomed, well developed, well me1 nourished, Behavior is calm, cooperative, appropriate for age, Reports c/o abdominal pain. Patient ate Burger shil[employer] about noon and by 1 pm was having nausea, diffuse abdominal pain that is cramping in nature and diarrhea. Pain: Complains of pain in abdomen Pain does not radiate. Pain currently is 10 out of 10 on a pain scale. Quality of pain is described as crampy, Pain began suddenly, 4 hours ago. Is continuous. Neuro: Level of Consciousness is awake, alert, obeys commands, Oriented to person, place, time, situation, Appropriate for age. Cardiovascular: Capillary refill < 3 seconds Patient's skin is warm and dry. Respiratory: Airway is patent Trachea midline Respiratory effort is even, unlabored, Respiratory pattern is regular, symmetrical. GI: Abdomen is round non-distended, Reports lower abdominal pain, upper abdominal pain, diarrhea, nausea, since 1 pm. [employer]ACH[employer]ES: 19:44 LMP 03/28/2023, unknown me1 Historical: - Allergies: 19:44 Azithromycin; me1 - PMHx: 19:44 Hypertensive disorder; me1 - PSHx: 19:44 section; D\T\C; me1 - Immunization history:: Adult Immunizations up to date. - Social history:: Smoking status: Reported history of juuling and/or vaping. Screenin:47 [facility] ED Fall Risk Assessment (Adult) History of falling in the last 3 months, ca1 including since admission No falls in past 3 months (0 pts) Confusion or Disorientation No (0 pts) Intoxicated or Sedated No (0 pts) Impaired Gait No (0 pts) Mobility Assist Device Used No (0 pt) Altered Elimination No (0 pt) Score/Fall Risk Level 0 - 2 = Low Risk Oriented to surroundings, Provided non-skid footwear, Hourly rounding (assess needs \T\ fall precautionary measures) done. Abuse screen: Denies threats or abuse. Nutritional screening: No deficits noted. Tuberculosis screening: No symptoms or risk factors identified. Assessment: 19:47 General: See triage assessment. . me1 22:22 GI: Bowel sounds present X 4 quads. me1 22:22 GI: Abd is soft and non tender X 4 quads. me1 Vital Signs: 19:42 BP 159 / 106; Pulse 91; Resp 18; Temp 98.8(O); Pulse Ox 100% on R/A; Weight 96.16 kg; me1 Height 5 ft. 0 in. ; Pain 10/10; 20:00 BP 162 / 110; Pulse 97; Resp 18; Pulse Ox 100% on R/A; me1 21:00 BP 165 / 117; Pulse 92; Resp 18; Pulse Ox 100% on R/A; me1 22:00 BP 151 / 100; Pulse 88; Resp 18; Pulse Ox 100% on R/A; me1 19:42 Body Mass Index 41.40 (96.16 kg, 152.4 cm) me1 19:42 Pain Scale: Adult ca1 ED Course: 19:42 Patient arrived in ED. me1 19:44 Triage completed. me1 19:44 Arm band placed on Patient placed in an exam room. me1 19:47 Lynnette Thompson [facility]-C [facility]. sb4 19:47 Emile Lo MD is Attending Physician. sb4 19:47 Patient has correct armband on for positive identification. Bed in low position. Call me1 light in reach. Side rails up X2. Provided Education on: POC. Verbalized understanding. . 19:47 No provider procedures requiring assistance completed. me1 19:48 Tonya Love RN is Primary Nurse. me1 19:50 Maintain EMS IV. Dressing intact. Good blood return noted. Site clean \T\ dry. Gauge \T\ me 1 site: 20g RAC. 20:07 CBC with Diff Sent. me1 20:07 CMP Sent. me1 20:07 Lipase Sent. me1 20:07 Test, Urine Sent. me1 20:39 Urinalysis w/ reflexes Sent. me1 21:47 CT Abd/Pelvis - IV Contrast Only In Process Unspecified. EDMS 22:22 IV discontinued, intact, bleeding controlled, No redness/swelling at site. Pressure pf1 dressing applied. Administered Medications: 20:07 Drug: NS 0.9% IV 1000 ml IV at 1 bolus Per protocol; 1000 mL bolus Route: IV; Rate: 1 me1 bolus; Site: right antecubital; 21:00 Follow up: Response: No adverse reaction; Marked relief of symptoms; IV Status: pf1 Completed infusion; IV Intake: 1000ml 22:22 Follow up: IV Status: Completed infusion me1 20:07 Drug: Ondansetron IVP 4 mg IVP once; over 2 minutes Route: IVP; Site: right antecubital;me1 20:35 Follow up: Response: No adverse reaction; Nausea is decreased me1 20:07 Drug: Loperamide PO 4 mg PO once Route: PO; me1 20:45 Follow up: Response: No adverse reaction me1 20:07 Drug: Dicyclomine IM 20 mg IM once Route: IM; Site: right deltoid; me1 20:35 Follow up: Response: No adverse reaction; Pain is unchanged, physician notified me1 20:35 Drug: Ketorolac IVP 15 mg IVP once Route: IVP; Site: right antecubital; me1 20:39 Follow up: Response: No adverse reaction; Pain is unchanged, physician notified me1 22:05 Drug: metoCLOPramide IVP 10 mg IVP once; over 1 to 2 minutes Route: IVP; Site: right pf1 antecubital; 22:15 Follow up: Response: No adverse reaction; Marked relief of symptoms pf1 Medication: 19:47 VIS not applicable for this client. me1 Intake: 21:00 IV: 1000ml; Total: 1000ml. pf1 Outcome: 21:56 Discharge ordered by . sb4 22:21 Discharged to home ambulatory, pf1 22:21 Condition: improved 22:21 Discharge instructions given to patient, Instructed on discharge instructions, follow up and referral plans. Demonstrated understanding of instructions, follow-up care, medications, Prescriptions given X 2, 22:22 Patient left the ED. pf1 Signatures: Dispatcher [employer] EDLynnette Bangura, PAMaggyC PAConi sb4 Agustina Gomez RN RN pf1 Tonya Love RN RN me1
--- NOTE | 2023-04-17 21:57 | EDPHYS ---
Physician Documentation [facility] Name: Nasrin Borden Age: 33 yrs Sex: Female : 1990 Arrival Date: 04/17/2023 Time: 19:41 Bed 19 Private MD: ED Physician Emile Lo HPI: 04/17 19:55 This 33 yrs old Black Female presents to ER via EMS with complaints of Abdominal Pain. sb4 19:55 patient believes she has food poisoning from ingesting burger shiloh earlier today. sb4 endorses diarrhea, diffuse abdominal cramping, and nausea. has not vomited. denies any fevers or urinary symptoms. 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 - Social history:: Smoking status: Reported history of juuling and/or vaping. ROS: 19:55 Constitutional: Negative for fever, chills, and weight loss, sb4 19:55 Abdomen/GI: Positive for abdominal pain, nausea, diarrhea, abdominal cramps, 19:55 All other systems are negative, Exam: 19:55 Head/Face: Normocephalic, atraumatic. Eyes: Extra-ocular motions intact. Periorbital sb4 areas with no swelling, redness, or edema. ENT: Mucous membranes moist. Cardiovascular: Regular rate and rhythm with a normal S1 and S2. Respiratory: Lungs have equal breath sounds bilaterally, clear to auscultation and percussion. No rales, rhonchi or wheezes noted. No increased work of breathing, no retractions or nasal flaring. Skin: Warm, dry with normal turgor. Normal color with no rashes, no lesions, and no evidence of cellulitis. MS/ Extremity: Pulses equal, no cyanosis. Neurovascular intact. Full, normal range of motion. 19:55 Constitutional: The patient appears alert, awake, uncomfortable, 19:55 Abdomen/GI: Inspection: abdomen appears normal, Bowel sounds: normal, Palpation: soft, mild abdominal tenderness, in the right lower quadrant and left lower quadrant, Vital Signs: 19:42 BP 159 / 106; Pulse 91; Resp 18; Temp 98.8(O); Pulse Ox 100% on R/A; Weight 96.16 kg; me1 Height 5 ft. 0 in. ; Pain 10/10; 20:00 BP 162 / 110; Pulse 97; Resp 18; Pulse Ox 100% on R/A; me1 21:00 BP 165 / 117; Pulse 92; Resp 18; Pulse Ox 100% on R/A; me1 22:00 BP 151 / 100; Pulse 88; Resp 18; Pulse Ox 100% on R/A; me1 19:42 Body Mass Index 41.40 (96.16 kg, 152.4 cm) me1 19:42 Pain Scale: Adult me1 MDM: 19:47 Patient medically screened. sb4 19:56 Differential diagnosis: gastroenteritis, colitis, appendicitis. sb4 21:56 Data reviewed: vital signs, nurses notes, lab test result(s), radiologic studies, and sb4 as a result, I will discharge patient. Counseling: I had a detailed discussion with the patient and/or guardian regarding the historical points, exam findings, and any diagnostic results supporting the discharge/admit diagnosis, the presence of at least one elevated blood pressure reading (>120/80) during this emergency department visit, lab results, radiology results, to return to the emergency department if symptoms worsen or persist or if there are any questions or concerns that arise at home. 04/17 19:51 Order name: CBC with Diff; Complete Time: 20:35 sb4 04/17 19:51 Order name: CMP; Complete Time: 20:35 sb4 04/17 19:51 Order name: Lipase; Complete Time: 20:35 sb4 04/17 19:51 Order name: Test, Urine; Complete Time: 20:59 sb4 04/17 19:51 Order name: Urinalysis w/ reflexes; Complete Time: 20:59 sb4 04/17 19:51 Order name: CT Abd/Pelvis - IV Contrast Only; Complete Time: 21:55 sb4 04/17 19:51 Order name: IV Saline Lock; Complete Time: 20:07 sb4 04/17 19:51 Order name: Labs collected and sent; Complete Time: 20:07 sb4 Administered Medications: 20:07 Drug: NS 0.9% IV 1000 ml IV at 1 bolus Per protocol; 1000 mL bolus Route: IV; Rate: 1 me1 bolus; Site: right antecubital; 21:00 Follow up: Response: No adverse reaction; Marked relief of symptoms; IV Status: pf1 Completed infusion; IV Intake: 1000ml 22:22 Follow up: IV Status: Completed infusion me1 20:07 Drug: Ondansetron IVP 4 mg IVP once; over 2 minutes Route: IVP; Site: right antecubital;me1 20:35 Follow up: Response: No adverse reaction; Nausea is decreased me1 20:07 Drug: Loperamide PO 4 mg PO once Route: PO; me1 20:45 Follow up: Response: No adverse reaction me1 20:07 Drug: Dicyclomine IM 20 mg IM once Route: IM; Site: right deltoid; me1 20:35 Follow up: Response: No adverse reaction; Pain is unchanged, physician notified me1 20:35 Drug: Ketorolac IVP 15 mg IVP once Route: IVP; Site: right antecubital; me1 20:39 Follow up: Response: No adverse reaction; Pain is unchanged, physician notified me1 22:05 Drug: metoCLOPramide IVP 10 mg IVP once; over 1 to 2 minutes Route: IVP; Site: right pf1 antecubital; 22:15 Follow up: Response: No adverse reaction; Marked relief of symptoms pf1 Disposition Summary: 04/17/23 21:56 Discharge Ordered Notes: Location: Home sb4 Problem: new sb4 Symptoms: are unchanged sb4 Condition: Stable sb4 Diagnosis - Other viral enteritis sb4 Followup: sb4 - With: Emergency Department - When: As needed - Reason: Trouble breathing, Worsening of condition Discharge Instructions: - Discharge Summary Sheet sb4 - Food Choices to Help Relieve Diarrhea, Adult sb4 - Viral Gastroenteritis, Adult, [id number] sb4 Forms: - Medication Reconciliation Form sb4 - Thank You Letter sb4 - Antibiotic Education sb4 - Prescription Opioid Use sb4 - Patient Portal Instructions sb4 - Leadership Thank You Letter sb4 Prescriptions: - Imodium A-D 2 mg Oral tablet - take 1 tablet ORAL route every 3 hours administer after each loose stool until sb4 symptoms controlled; do not exceed 8 mg per 24 hrs; 20 tablet; Refills: 0, Product Selection Permitted - dicyclomine 20 mg Oral tablet - take 1 tablet ORAL route 3 times per day; 20 tablet; Refills: 0, Product sb4 Selection Permitted Addendum: 04/19/2023 04:21 I was immediately available for consultation during this patient's visit. I did not e c2 personally see the patient or discuss the patient with the ENIO. . Signatures: Dispatcher [employer] Lynnette Mena PA-C PA-C sb4 Agustina Gomez RN RN pf1 Tonya Love RN RN me1 Emile Lo MD MD ec2
[2023-04-17 22:34] VITALS: BP 151/100; TEMP 98.8; O2SAT 100
== END ==
LOC: ER 19:41
DX: A08.39 Other viral enteritis (principal)
CPT/HCPCS: 36415; 74177; 80053; 81001; 81025; 83690; 85025; 96361; 96372; 96374; 96375; 99284; J0500; J2405; J2765; J7030; Q9967